=== PATIENT | male | born 1940 | race Caucasian/White ===

== ENCOUNTER 2020-04-15 10:23 | Observation (INO) ==
[2020-04-15 11:54] LABS: Basophils % 0.5 % (0.0-0.8); Eosinophils # 0.1 10*3/uL (0.0-0.87); Eosinophils % 2.3 % (0.00-10.9); Hematocrit 29.8 VOL% (42.0-52.0); Hemoglobin 9.4 GM/DL (14.0-18.0); Immature Granulocytes % 0.3 %; Immature Granulocytes Absolute 0.01 #; Lymphocytes # 0.5 10*3/uL (1.4-4.0); Lymphocytes % 11.9 % (21.2-54.2); Mean Corpuscular HGB Conc 31.5 GM/DL (32-36); Mean Corpuscular Volume 94.6 FL (87-102); Monocytes % 7.4 % (1.7-12.7); Neutrophils % 77.6 % (38.7-73.9); Platelet Count 204 T/CUMM (130-400); Red Blood Count 3.15 MC/CUMM (3.8-5.5); Red Cell Distribution Width 14.8 % (9.3-17.3); White Blood Count 3.9 T/CUMM (4-12)
[2020-04-15 11:57] LABS: Bilirubin,Total 0.4 MG/DL (0.2-1.0); Calcium 8.4 MG/DL (8.5-10.1); Osmolality,Calculated 291.8 MOS/KG (273-304); Total Protein 5.7 G/DL (6.4-8.3)
[2020-04-15] MEDS ORDERED: hydrALAZINE 20 MG/1 ML VIAL ONE (13:33)
[2020-04-15] MEDS ORDERED: FUROSEMIDE 100 MG/10 ML VIAL ONE (13:33)
[2020-04-15] MEDS ORDERED: hydrALAZINE 20 MG/1 ML VIAL IV STA (13:36)
[2020-04-15] MEDS ORDERED: FUROSEMIDE 40 MG/4 ML VIAL IV STA (13:36)
[2020-04-15] MEDS ORDERED: ACETAMINOPHEN 325 MG TABLET PO ONE (13:36)
[2020-04-15] MEDS ORDERED: DOCUSATE SODIUM 100 MG CAPSULE PO PRN (13:45)
[2020-04-15] MEDS ORDERED: ONDANSETRON 4 MG/2 ML VIAL IV PRN (13:45)
[2020-04-15] MEDS ORDERED: DEXTROSE 50% 25 GM/50 ML VIAL IV PRN ×2 (13:45)
[2020-04-15] MEDS ORDERED: GLUCAGON 1 MG VIAL IM PRN ×2 (13:45)
[2020-04-15] MEDS ORDERED: cloNIDine 0.1 MG TABLET PO PRN (13:56)
[2020-04-15 15:33] LABS: Bilirubin,Urine Negative (Negative); Blood, Urine Negative (Negative); Glucose,Urine (UA) Negative (Negative); Ketones,Urine Negative (Negative); Mucus,Urine Occasional /LPF (Occasional); Nitrite,Urine Negative (Negative); Protein,Urine >=500 MG/DL; RBC,Urine 5 /HPF (0-4); Squamous Epithelial Cell,Urine Occasional /HPF (0-10); Urine Appearance CLEAR (Clear); Urine Color Yellow (Yellow); Urine Specific Gravity 1.012 (1.001-1.035); Urine Urobilinogen < 2.0 EU/DL (0.2-1.0); WBC,Urine 1 /HPF (0-6)
[2020-04-15] MEDS: INSULIN LISPRO 100 UNIT/ML SUBCUT SCH ×2 (17:05→20:52)
[2020-04-15] MEDS ORDERED: CALCIUM CARBONATE CHEW 500 MG TABLET PO PRN (17:13)
[2020-04-15] MEDS: ROSUVASTATIN 20 MG TABLET PO SCH ×2 (18:09→20:44)
[2020-04-15] MEDS: HEPARIN 5,000 UNIT/1 ML VIAL SUBCUT SCH ×2 (18:09→21:39)
[2020-04-15] MEDS ORDERED: FENOFIBRATE 145 MG TABLET PO SCH (19:00)
[2020-04-15] MEDS ORDERED: DOXAZOSIN 4 MG TABLET PO SCH (21:00)
[2020-04-15] MEDS ORDERED: ASCORBIC ACID 500 MG TABLET PO SCH (21:00)
[2020-04-15] MEDS ORDERED: OLMESARTAN 20 MG TABLET PO SCH (21:00)
[2020-04-15] MEDS ORDERED: FAMOTIDINE 20 MG TABLET PO SCH (21:00)
[2020-04-15] MEDS ORDERED: CHOLECALCIFEROL 1,000 UNIT TABLET PO SCH (21:00)
[2020-04-15] MEDS ORDERED: GABAPENTIN 300 MG CAPSULE PO SCH (21:00)
[2020-04-15] MEDS ORDERED: NON-FORMULARY MEDICATION (L. Gasseri-B. Bifidum-B Longum [Phillips' Colon Health] 1.5 bill PO SCH (21:00)
[2020-04-15] MEDS ORDERED: MULTIVITAMIN (CENTRUM) TABLET PO SCH (21:00)
[2020-04-16] MEDS: HEPARIN 5,000 UNIT/1 ML VIAL SUBCUT SCH (05:55)
[2020-04-16 06:08] LABS: Eosinophils # 0.1 10*3/uL (0.0-0.87); Eosinophils % 2.9 % (0.00-10.9); Hematocrit 29.8 VOL% (42.0-52.0); Hemoglobin 9.3 GM/DL (14.0-18.0); Immature Granulocytes % 0.3 %; Immature Granulocytes Absolute 0.01 #; Lymphocytes # 0.8 10*3/uL (1.4-4.0); Lymphocytes % 19.6 % (21.2-54.2); Mean Corpuscular HGB Conc 31.2 GM/DL (32-36); Mean Corpuscular Volume 95.8 FL (87-102); Mean Platelet Volume 9.9 FL (9.6-12.0); Monocytes % 9.1 % (1.7-12.7); Neutrophils % 67.1 % (38.7-73.9); Platelet Count 198 T/CUMM (130-400); Red Blood Count 3.11 MC/CUMM (3.8-5.5); Red Cell Distribution Width 14.8 % (9.3-17.3); White Blood Count 3.8 T/CUMM (4-12)
[2020-04-16 06:27] LABS: Calcium 8.6 MG/DL (8.5-10.1); Osmolality,Calculated 289.8 MOS/KG (273-304); Risk Ratio 4.3; VLDL CHOLESTEROL 45.4 MG/DL
[2020-04-16] MEDS ORDERED: LEVOTHYROXINE 75 MCG TABLET PO SCH (06:30)
[2020-04-16] MEDS ORDERED: POTASSIUM CHLORIDE 20 MEQ TABLET PO PRN (07:07)
[2020-04-16] MEDS: INSULIN LISPRO 100 UNIT/ML SUBCUT SCH ×2 (07:52→11:05)
[2020-04-16] MEDS ORDERED: POTASSIUM CHLORIDE 20 MEQ TABLET PO ONE (08:49)
[2020-04-16] MEDS ORDERED: SERTRALINE 50 MG TABLET PO SCH (09:00)
[2020-04-16] MEDS ORDERED: PANTOPRAZOLE 40 MG TABLET PO SCH (09:00)
[2020-04-16] MEDS ORDERED: FUROSEMIDE 40 MG/4 ML VIAL IV SCH (09:00)
[2020-04-16] MEDS ORDERED: POTASSIUM CHLORIDE 20 MEQ TABLET PO SCH (09:00)
[2020-04-16] MEDS ORDERED: CLOPIDOGREL 75 MG TABLET PO SCH (09:00)
[2020-04-16] MEDS ORDERED: MAGNESIUM OXIDE 400 MG TABLET PO SCH (09:00)
[2020-04-16] MEDS ORDERED: carvediloL 6.25 MG TABLET PO SCH (11:00)
[2020-04-16 12:20] VITALS: BP 165/64
[2020-04-16] MEDS ORDERED: cloNIDine 0.1 MG TABLET PO SCH (21:00)
[2020-04-17] MEDS ORDERED: FUROSEMIDE 40 MG/4 ML VIAL IV SCH (09:00)
== END 2020-04-16 13:09 | disposition home health service (06) ==
LOC: N.EDINP 10:23 → N.ED 10:23 → N.5E 16:15
PROVIDERS: ADMIT Internal Medicine; ATTEND Internal Medicine

== ENCOUNTER 2020-04-29 10:23 | Inpatient (IN) ==
[2020-04-29 11:30] LABS: Basophils % 0.5 % (0.0-0.8); Eosinophils # 0.1 10*3/uL (0.0-0.87); Eosinophils % 2.6 % (0.00-10.9); Hematocrit 30.3 VOL% (42.0-52.0); Hemoglobin 9.5 GM/DL (14.0-18.0); Immature Granulocytes % 0.2 %; Immature Granulocytes Absolute 0.01 #; Lymphocytes # 0.6 10*3/uL (1.4-4.0); Lymphocytes % 14.9 % (21.2-54.2); Mean Corpuscular HGB Conc 31.4 GM/DL (32-36); Mean Corpuscular Volume 95.6 FL (87-102); Monocytes % 9.1 % (1.7-12.7); Neutrophils % 72.7 % (38.7-73.9); Platelet Count 221 T/CUMM (130-400); Red Blood Count 3.17 MC/CUMM (3.8-5.5); Red Cell Distribution Width 14.9 % (9.3-17.3); White Blood Count 4.2 T/CUMM (4-12)
[2020-04-29 11:53] LABS: Albumin 2.7 G/DL (3.4-5.0); Bilirubin,Total 0.4 MG/DL (0.2-1.0); Calcium 8.5 MG/DL (8.5-10.1); Osmolality,Calculated 293.8 MOS/KG (273-304)
[2020-04-29 11:54] LABS: PT Patient Result 10.8 SECS (9.8-11.9); Partial Thromboplastin Time 28.4 SECS (23.9-33.8)
[2020-04-29 12:32] LABS: Bilirubin,Urine Negative (Negative); Blood, Urine Negative (Negative); Glucose,Urine (UA) Negative (Negative); Hyaline Casts,Urine 5 /LPF (0-3); Ketones,Urine Negative (Negative); Mucus,Urine Occasional /LPF (Occasional); Nitrite,Urine Negative (Negative); Protein,Urine >=500 MG/DL; RBC,Urine 3 /HPF (0-4); Squamous Epithelial Cell,Urine Occasional /HPF (0-10); Urine Appearance CLEAR (Clear); Urine Color Yellow (Yellow); Urine Specific Gravity 1.017 (1.001-1.035); Urine Urobilinogen < 2.0 EU/DL (0.2-1.0); WBC,Urine 1 /HPF (0-6)
[2020-04-29] MEDS ORDERED: GLUCAGON 1 MG VIAL IM PRN (15:04)
[2020-04-29] MEDS ORDERED: DEXTROSE 50% 25 GM/50 ML VIAL IV PRN (15:04)
[2020-04-29] MEDS ORDERED: ALBUTEROL/IPRATROPIUM 3 ML NEB RESP TX PRN (15:33)
[2020-04-29] MEDS ORDERED: MAGNESIUM SULF RIDER 2 GM in PREMIX 1 EACH IV PRN (15:33)
[2020-04-29] MEDS ORDERED: MORPHINE 4 MG/1 ML VIAL IV PRN (15:33)
[2020-04-29] MEDS ORDERED: LACTULOSE 20 GM/30 ML UDCUP PO PRN (15:33)
[2020-04-29] MEDS ORDERED: PROMETHAZINE 25 MG/1 ML VIAL IM PRN (15:33)
[2020-04-29] MEDS ORDERED: MAGNESIUM SULF RIDER 4 GM in PREMIX 1 EACH IV PRN (15:33)
[2020-04-29] MEDS ORDERED: DOCUSATE SODIUM 100 MG CAPSULE PO PRN (15:33)
[2020-04-29] MEDS ORDERED: ONDANSETRON 4 MG/2 ML VIAL IV PRN (15:33)
[2020-04-29] MEDS: cefTRIAXone 1,000 MG in SYRINGE 1 EACH IV SCH (17:38)
[2020-04-29] MEDS: FUROSEMIDE 40 MG/4 ML VIAL IV SCH (17:38)
[2020-04-29] MEDS: AZITHROMYCIN INJ 500 MG in SODIUM CHLORIDE 0.9% 250 ML IV SCH (17:38)
[2020-04-29] MEDS: ACETAMINOPHEN 325 MG TABLET PO PRN ×2 (18:45→23:19)
[2020-04-29] MEDS: ENOXAPARIN 30 MG/0.3 ML SYRINGE SUBCUT SCH (20:27)
[2020-04-29] MEDS: guaiFENesin/DM ER 600-30 MG TABLET PO SCH (20:27)
[2020-04-30] MEDS: hydrALAZINE 20 MG/1 ML VIAL IV PRN ×3 (04:37→21:54)
[2020-04-30 05:46] LABS: Basophils % 0.8 % (0.0-0.8); Eosinophils # 0.1 10*3/uL (0.0-0.87); Eosinophils % 2.2 % (0.00-10.9); Hematocrit 30.1 VOL% (42.0-52.0); Hemoglobin 9.4 GM/DL (14.0-18.0); Immature Granulocytes % 0.2 %; Immature Granulocytes Absolute 0.01 #; Lymphocytes # 0.9 10*3/uL (1.4-4.0); Lymphocytes % 17.4 % (21.2-54.2); Mean Corpuscular HGB Conc 31.2 GM/DL (32-36); Mean Corpuscular Volume 93.8 FL (87-102); Mean Platelet Volume 10.5 FL (9.6-12.0); Monocytes % 8.4 % (1.7-12.7); Platelet Count 230 T/CUMM (130-400); Red Blood Count 3.21 MC/CUMM (3.8-5.5); Red Cell Distribution Width 14.6 % (9.3-17.3)
[2020-04-30 06:02] LABS: Calcium 8.3 MG/DL (8.5-10.1); Osmolality,Calculated 293.7 MOS/KG (273-304); Risk Ratio 4.4; Thyroid Stimulating Hormone 3.53 uIU/ml (0.358-3.74); VLDL CHOLESTEROL 45.4 MG/DL
[2020-04-30] MEDS: guaiFENesin/DM ER 600-30 MG TABLET PO SCH ×2 (08:22→20:52)
[2020-04-30] MEDS: ACETAMINOPHEN 325 MG TABLET PO PRN ×2 (08:22→17:08)
[2020-04-30] MEDS: FUROSEMIDE 40 MG/4 ML VIAL IV SCH ×2 (08:24→15:56)
[2020-04-30] MEDS ORDERED: cloNIDine 0.1 MG TABLET PO PRN (08:32)
[2020-04-30] MEDS: SERTRALINE 50 MG TABLET PO SCH (09:11)
[2020-04-30] MEDS: POTASSIUM CHLORIDE 10 MEQ TABLET PO SCH (09:11)
[2020-04-30] MEDS: LEVOTHYROXINE 75 MCG TABLET PO SCH (09:12)
[2020-04-30] MEDS: cloNIDine 0.1 MG TABLET PO SCH ×2 (09:12→20:52)
[2020-04-30] MEDS: CLOPIDOGREL 75 MG TABLET PO SCH (09:12)
[2020-04-30] MEDS: carvediloL 6.25 MG TABLET PO SCH ×2 (09:12→17:08)
[2020-04-30] MEDS: AZITHROMYCIN INJ 500 MG in SODIUM CHLORIDE 0.9% 250 ML IV SCH (15:59)
[2020-04-30] MEDS: cefTRIAXone 1,000 MG in SYRINGE 1 EACH IV SCH (17:11)
[2020-04-30] MEDS: DOXAZOSIN 4 MG TABLET PO SCH (18:16)
[2020-04-30] MEDS: FENOFIBRATE 145 MG TABLET PO SCH (18:16)
[2020-04-30] MEDS: ENOXAPARIN 30 MG/0.3 ML SYRINGE SUBCUT SCH (20:52)
[2020-05-01] MEDS: ACETAMINOPHEN 325 MG TABLET PO PRN ×3 (00:05→15:16)
[2020-05-01] MEDS: LEVOTHYROXINE 75 MCG TABLET PO SCH (06:10)
[2020-05-01 07:32] LABS: Basophils % 0.4 % (0.0-0.8); Eosinophils # 0.1 10*3/uL (0.0-0.87); Hematocrit 28.8 VOL% (42.0-52.0); Hemoglobin 9.2 GM/DL (14.0-18.0); Immature Granulocytes % 0.2 %; Immature Granulocytes Absolute 0.01 #; Lymphocytes # 0.7 10*3/uL (1.4-4.0); Lymphocytes % 13.3 % (21.2-54.2); Mean Corpuscular HGB Conc 31.9 GM/DL (32-36); Mean Corpuscular Volume 93.8 FL (87-102); Mean Platelet Volume 9.9 FL (9.6-12.0); Monocytes % 8.5 % (1.7-12.7); Neutrophils % 75.6 % (38.7-73.9); Platelet Count 197 T/CUMM (130-400); Red Blood Count 3.07 MC/CUMM (3.8-5.5); Red Cell Distribution Width 14.9 % (9.3-17.3)
[2020-05-01 07:53] LABS: Calcium 8.3 MG/DL (8.5-10.1); Osmolality,Calculated 295.7 MOS/KG (273-304)
[2020-05-01] MEDS: POTASSIUM CHLORIDE 20 MEQ TABLET PO PRN ×4 (08:34→18:32)
[2020-05-01] MEDS: POTASSIUM CHLORIDE 10 MEQ TABLET PO SCH (08:34)
[2020-05-01] MEDS: cloNIDine 0.1 MG TABLET PO SCH ×2 (08:35→20:08)
[2020-05-01] MEDS: SERTRALINE 50 MG TABLET PO SCH (08:35)
[2020-05-01] MEDS: guaiFENesin/DM ER 600-30 MG TABLET PO SCH ×2 (08:35→20:08)
[2020-05-01] MEDS: carvediloL 6.25 MG TABLET PO SCH ×2 (08:35→16:30)
[2020-05-01] MEDS: AZITHROMYCIN 250 MG TABLET PO SCH (08:35)
[2020-05-01] MEDS: CLOPIDOGREL 75 MG TABLET PO SCH (08:35)
[2020-05-01] MEDS: FUROSEMIDE 40 MG/4 ML VIAL IV SCH (08:40)
[2020-05-01] MEDS: FUROSEMIDE 40 MG TABLET PO SCH (16:30)
[2020-05-01] MEDS: FENOFIBRATE 145 MG TABLET PO SCH (18:33)
[2020-05-01] MEDS: DOXAZOSIN 4 MG TABLET PO SCH (18:33)
[2020-05-01] MEDS: hydrALAZINE 20 MG/1 ML VIAL IV PRN (20:07)
[2020-05-01] MEDS: ENOXAPARIN 30 MG/0.3 ML SYRINGE SUBCUT SCH (20:07)
[2020-05-02 00:49] LABS: Basophils % 0.6 % (0.0-0.8); Eosinophils # 0.1 10*3/uL (0.0-0.87); Eosinophils % 2.4 % (0.00-10.9); Hematocrit 29.4 VOL% (42.0-52.0); Hemoglobin 9.3 GM/DL (14.0-18.0); Immature Granulocytes % 0.2 %; Immature Granulocytes Absolute 0.01 #; Lymphocytes # 0.9 10*3/uL (1.4-4.0); Lymphocytes % 17.8 % (21.2-54.2); Mean Corpuscular HGB Conc 31.6 GM/DL (32-36); Mean Corpuscular Volume 93.9 FL (87-102); Mean Platelet Volume 10.4 FL (9.6-12.0); Monocytes % 10.8 % (1.7-12.7); Neutrophils % 68.2 % (38.7-73.9); Platelet Count 201 T/CUMM (130-400); Red Blood Count 3.13 MC/CUMM (3.8-5.5); Red Cell Distribution Width 14.7 % (9.3-17.3)
[2020-05-02] MEDS: LEVOTHYROXINE 75 MCG TABLET PO SCH (06:05)
[2020-05-02 06:47] LABS: Calcium 8.2 MG/DL (8.5-10.1); Osmolality,Calculated 298.4 MOS/KG (273-304)
[2020-05-02] MEDS: CLOPIDOGREL 75 MG TABLET PO SCH (08:44)
[2020-05-02] MEDS: POTASSIUM CHLORIDE 20 MEQ TABLET PO PRN (08:45)
[2020-05-02] MEDS: AZITHROMYCIN 250 MG TABLET PO SCH (08:45)
[2020-05-02] MEDS: SERTRALINE 50 MG TABLET PO SCH (08:46)
[2020-05-02] MEDS: POTASSIUM CHLORIDE 10 MEQ TABLET PO SCH (08:47)
[2020-05-02] MEDS: carvediloL 6.25 MG TABLET PO SCH (08:47)
[2020-05-02] MEDS: guaiFENesin/DM ER 600-30 MG TABLET PO SCH (08:47)
[2020-05-02] MEDS: cloNIDine 0.1 MG TABLET PO SCH (08:48)
[2020-05-02] MEDS: FUROSEMIDE 40 MG TABLET PO SCH (09:49)
[2020-05-02] MEDS ORDERED: POTASSIUM CHLORIDE 20 MEQ TABLET PO ONE (10:42)
[2020-05-02] MEDS ORDERED: hydrALAZINE 25 MG TABLET PO SCH (15:00)
[2020-05-02 15:38] VITALS: BP 158/63
[2020-05-02] MEDS ORDERED: ASCORBIC ACID 500 MG TABLET PO SCH (19:00)
[2020-05-02] MEDS ORDERED: [UNRECOGNIZED DRUG - MIXTURE] PO SCH (19:00)
[2020-05-02] MEDS ORDERED: CHOLECALCIFEROL 1,000 UNIT TABLET PO SCH (19:00)
[2020-05-02] MEDS ORDERED: MULTIVITAMIN (CENTRUM) TABLET PO SCH (19:00)
[2020-05-02] MEDS ORDERED: ROSUVASTATIN 20 MG TABLET PO SCH (19:00)
[2020-05-02] MEDS ORDERED: FAMOTIDINE 20 MG TABLET PO SCH (21:00)
[2020-05-02] MEDS ORDERED: GABAPENTIN 300 MG CAPSULE PO SCH (21:00)
[2020-05-02] MEDS ORDERED: PANTOPRAZOLE 40 MG TABLET PO SCH (21:00)
[2020-05-02] MEDS ORDERED: REPAGLINIDE 1 MG TABLET PO SCH (21:00)
[2020-05-03] MEDS ORDERED: MAGNESIUM OXIDE 400 MG TABLET PO SCH (09:00)
== END 2020-05-02 16:35 | disposition home health service (06) | DRG 291 ==
LOC: N.ED 10:23 → N.EDINP 15:04 → N.TELEN 16:32
PROVIDERS: ADMIT Internal Medicine; ATTEND Internal Medicine

== ENCOUNTER 2020-08-31 08:54 | Observation (INO) ==
[2020-08-31 09:38] LABS: Basophils % 0.6 % (0.0-0.8); Eosinophils # 0.1 10*3/uL (0.0-0.87); Eosinophils % 1.8 % (0.00-10.9); Hematocrit 26.5 VOL% (42.0-52.0); Hemoglobin 8.3 GM/DL (14.0-18.0); Immature Granulocytes % 0.4 %; Immature Granulocytes Absolute 0.02 #; Lymphocytes # 0.5 10*3/uL (1.4-4.0); Mean Corpuscular HGB Conc 31.3 GM/DL (32-36); Mean Corpuscular Volume 94.6 FL (87-102); Mean Platelet Volume 9.9 FL (9.6-12.0); Monocytes % 8.6 % (1.7-12.7); Neutrophils % 77.6 % (38.7-73.9); Platelet Count 221 T/CUMM (130-400); Red Cell Distribution Width 15.5 % (9.3-17.3); White Blood Count 4.9 T/CUMM (4-12)
[2020-08-31 09:48] LABS: PT Patient Result 10.7 SECS (9.8-11.9); Partial Thromboplastin Time 24.8 SECS (23.9-33.8)
[2020-08-31 09:59] LABS: Alanine Aminotransferase 21 U/L (16-61); Albumin 2.5 G/DL (3.4-5.0); Alkaline Phosphatase 75 U/L (45-117); Aspartate Amino Transferase 28 U/L (0-37); Bilirubin,Total < 0.39 MG/DL (0.2-1.0); Blood Urea Nitrogen 54 MG/DL (7-18); Calcium 8.3 MG/DL (8.5-10.1); Carbon Dioxide 33 MMOL/L (21-32); Estimated Glom Filtration Rate 14 ML/MIN; Glucose 158 MG/DL (74-106); Osmolality,Calculated 303.8 MOS/KG (273-304); Sodium 144 MMOL/L (136-145); Total Protein 5.8 G/DL (5.0-7.5)
[2020-08-31 10:07] LABS: Free T4 (Free Thyroxine) 0.88 NG/DL (0.76-1.46); Thyroid Stimulating Hormone 4.06 uIU/ml (0.358-3.74)
[2020-08-31] MEDS ORDERED: POTASSIUM CHLORIDE 20 MEQ TABLET PO STA (10:48)
[2020-08-31] MEDS ORDERED: SODIUM CHLORIDE 0.9% 1,000 ML IV STA (11:28)
[2020-08-31 11:29] LABS: Bacteria,Urine Occasional /HPF (Few); Bilirubin,Urine Negative (Negative); Blood, Urine Negative (Negative); Glucose,Urine (UA) Negative (Negative); Ketones,Urine Negative (Negative); Mucus,Urine Occasional /LPF (Occasional); Nitrite,Urine Negative (Negative); Protein,Urine >=500 MG/DL; RBC,Urine <1 /HPF (0-4); Urine Appearance CLEAR (Clear); Urine Color Yellow (Yellow); Urine Specific Gravity 1.011 (1.001-1.035); Urine Urobilinogen < 2.0 EU/DL (0.2-1.0); WBC,Urine 1 /HPF (0-6)
[2020-08-31] MEDS ORDERED: GLUCAGON 1 MG VIAL IM PRN (11:38)
[2020-08-31] MEDS ORDERED: ONDANSETRON 4 MG/2 ML VIAL IV PRN (11:38)
[2020-08-31] MEDS ORDERED: DEXTROSE 50% 25 GM/50 ML VIAL IV PRN (11:38)
[2020-08-31] MEDS ORDERED: LABETALOL 20 MG/4 ML SYRINGE IV PRN (11:43)
[2020-08-31] MEDS ORDERED: ENOXAPARIN 30 MG/0.3 ML SYRINGE SUBCUT SCH (12:00)
[2020-08-31] MEDS: SODIUM CHLORIDE 0.9% 1,000 ML IV SCH (14:40)
[2020-08-31] MEDS ORDERED: ACETAMINOPHEN 325 MG TABLET PO PRN (15:38)
[2020-08-31] MEDS: ENOXAPARIN 30 MG/0.3 ML SYRINGE SUBCUT SCH (16:25)
[2020-08-31] MEDS: carvediloL 3.125 MG TABLET PO SCH (16:26)
[2020-08-31] MEDS ORDERED: ROSUVASTATIN 20 MG TABLET PO SCH (21:00)
[2020-08-31] MEDS ORDERED: cloNIDine 0.1 MG TABLET PO SCH (21:00)
[2020-08-31] MEDS ORDERED: DOXAZOSIN 4 MG TABLET PO SCH (21:00)
[2020-08-31] MEDS ORDERED: FENOFIBRATE 145 MG TABLET PO SCH (21:00)
[2020-08-31] MEDS ORDERED: CHOLECALCIFEROL 1,000 UNIT TABLET PO SCH (21:00)
[2020-08-31] MEDS ORDERED: ASCORBIC ACID 500 MG TABLET PO SCH (21:00)
[2020-08-31] MEDS ORDERED: MULTIVITAMIN (CENTRUM) TABLET PO SCH (21:00)
[2020-08-31] MEDS ORDERED: FAMOTIDINE 20 MG TABLET PO SCH (21:00)
[2020-09-01] MEDS: SODIUM CHLORIDE 0.9% 1,000 ML IV SCH ×2 (01:04→11:11)
[2020-09-01 05:38] LABS: Basophils % 0.5 % (0.0-0.8); Eosinophils # 0.1 10*3/uL (0.0-0.87); Hematocrit 25.7 VOL% (42.0-52.0); Hemoglobin 7.7 GM/DL (14.0-18.0); Lymphocytes # 0.8 10*3/uL (1.4-4.0); Lymphocytes % 21.8 % (21.2-54.2); Mean Corpuscular Volume 96.6 FL (87-102); Mean Platelet Volume 10.2 FL (9.6-12.0); Monocytes % 10.5 % (1.7-12.7); Neutrophils % 64.2 % (38.7-73.9); Platelet Count 177 T/CUMM (130-400); Red Blood Count 2.66 MC/CUMM (3.8-5.5); Red Cell Distribution Width 15.4 % (9.3-17.3); White Blood Count 3.7 T/CUMM (4-12)
[2020-09-01 06:02] LABS: % Iron Saturation 16.7 % (18-50); Calcium 8.1 MG/DL (8.5-10.1); Osmolality,Calculated 305.4 MOS/KG (273-304); Potassium 2.8 MMOL/L (3.5-5.1); Risk Ratio 3.49; VLDL CHOLESTEROL 33.2 MG/DL
[2020-09-01] MEDS ORDERED: LEVOTHYROXINE 75 MCG TABLET PO SCH (06:30)
[2020-09-01] MEDS ORDERED: POTASSIUM CHLORIDE 20 MEQ TABLET PO ONE ×2 (07:26→11:53)
[2020-09-01] MEDS: carvediloL 3.125 MG TABLET PO SCH (08:52)
[2020-09-01] MEDS: POTASSIUM CHLORIDE RIDER 10 MEQ in PREMIX 1 EACH IV SCH ×5 (08:54→11:11)
[2020-09-01] MEDS ORDERED: SERTRALINE 50 MG TABLET PO SCH (09:00)
[2020-09-01] MEDS ORDERED: PANTOPRAZOLE 40 MG TABLET PO SCH (09:00)
[2020-09-01] MEDS ORDERED: CLOPIDOGREL 75 MG TABLET PO SCH (09:00)
[2020-09-01] MEDS ORDERED: POLYVINYL ALCOHOL 1.4% OPH SOLN 15 ML BOTTLE BOTH EYES PRN (11:47)
[2020-09-01] MEDS: ENOXAPARIN 30 MG/0.3 ML SYRINGE SUBCUT SCH (12:10)
[2020-09-01 12:27] VITALS: BP 187/74
== END 2020-09-01 16:05 | disposition home or self-care (01) ==
LOC: N.ED 08:54 → N.EDINP 08:54 → N.TELEN 14:20
PROVIDERS: ADMIT Internal Medicine; ATTEND Internal Medicine

== ENCOUNTER 2020-09-12 08:03 | Inpatient (IN) ==
[2020-09-12] MEDS ORDERED: SODIUM CHLORIDE 0.9% 500 ML IV STA (08:10)
[2020-09-12 08:54] LABS: Basophils % 0.2 % (0.0-0.8); Eosinophils # 0.1 10*3/uL (0.0-0.87); Immature Granulocytes % 0.4 %; Immature Granulocytes Absolute 0.02 #; Lymphocytes # 0.7 10*3/uL (1.4-4.0); Lymphocytes % 14.5 % (21.2-54.2); Mean Corpuscular HGB Conc 30.1 GM/DL (32-36); Mean Corpuscular Volume 98.2 FL (87-102); Mean Platelet Volume 10.4 FL (9.6-12.0); Monocytes % 6.6 % (1.7-12.7); Neutrophils % 77.3 % (38.7-73.9); Platelet Count 191 T/CUMM (130-400); Red Blood Count 1.66 MC/CUMM (3.8-5.5); Red Cell Distribution Width 15.8 % (9.3-17.3); White Blood Count 4.8 T/CUMM (4-12)
[2020-09-12 08:58] LABS: Hematocrit 16.3 VOL% (42.0-52.0); Hemoglobin 4.9 GM/DL (14.0-18.0)
[2020-09-12 09:03] LABS: INR 1.1; PT Patient Result 11.9 SECS (9.8-11.9); Partial Thromboplastin Time 23.9 SECS (23.9-33.8)
[2020-09-12] MEDS ORDERED: SODIUM CHLORIDE 0.9% 1,000 ML IV PRN (09:04)
[2020-09-12 09:18] LABS: Bilirubin,Total 0.5 MG/DL (0.2-1.0); Calcium 7.7 MG/DL (8.5-10.1); Osmolality,Calculated 308.3 MOS/KG (273-304); Potassium 3.9 MMOL/L (3.5-5.1); Total Protein 4.2 G/DL (5.0-7.5)
[2020-09-12 11:04] LABS: Amorphous Crystals,Urine Moderate /HPF (Few); Bilirubin,Urine Negative (Negative); Blood, Urine Negative (Negative); Glucose,Urine (UA) 50 mg/dL (Negative); Ketones,Urine Negative (Negative); Mucus,Urine Occasional /LPF (Occasional); Nitrite,Urine Negative (Negative); Protein,Urine >=500 MG/DL; Urine Appearance CLOUDY (Clear); Urine Color Yellow (Yellow); Urine Specific Gravity 1.015 (1.001-1.035); Urine Urobilinogen < 2.0 EU/DL (0.2-1.0)
[2020-09-12] MEDS ORDERED: ONDANSETRON 4 MG/2 ML VIAL IV PRN (11:23)
[2020-09-12] MEDS ORDERED: DEXTROSE 50% 25 GM/50 ML VIAL IV PRN (11:23)
[2020-09-12] MEDS ORDERED: GLUCAGON 1 MG VIAL IM PRN (11:23)
[2020-09-12] MEDS ORDERED: DOCUSATE SODIUM 100 MG CAPSULE PO PRN (11:23)
[2020-09-12] MEDS ORDERED: FUROSEMIDE 40 MG/4 ML VIAL IV ONE (11:23)
[2020-09-12] MEDS: ACETAMINOPHEN 325 MG TABLET PO PRN ×2 (13:22→21:30)
[2020-09-12 18:34] LABS: Hematocrit 22.1 VOL% (42.0-52.0); Hemoglobin 7.1 GM/DL (14.0-18.0)
[2020-09-13 06:10] LABS: Basophils % 0.6 % (0.0-0.8); Eosinophils # 0.1 10*3/uL (0.0-0.87); Eosinophils % 2.2 % (0.00-10.9); Hematocrit 18.2 VOL% (42.0-52.0); Immature Granulocytes % 0.4 %; Immature Granulocytes Absolute 0.02 #; Lymphocytes # 0.7 10*3/uL (1.4-4.0); Lymphocytes % 13.1 % (21.2-54.2); Mean Corpuscular HGB Conc 32.4 GM/DL (32-36); Mean Corpuscular Volume 92.4 FL (87-102); Mean Platelet Volume 9.8 FL (9.6-12.0); Monocytes % 10.1 % (1.7-12.7); Neutrophils % 73.6 % (38.7-73.9); Red Blood Count 1.97 MC/CUMM (3.8-5.5); Red Cell Distribution Width 15.5 % (9.3-17.3)
[2020-09-13 06:20] LABS: Calcium 8.1 MG/DL (8.5-10.1); Osmolality,Calculated 303.6 MOS/KG (273-304); Potassium 3.4 MMOL/L (3.5-5.1)
[2020-09-13 06:23] LABS: Platelet Count 151 T/CUMM (130-400); Uric Acid 7.7 MG/DL (3.5-7.2)
[2020-09-13 06:24] LABS: Hemoglobin 5.9 GM/DL (14.0-18.0)
[2020-09-13] MEDS ORDERED: SODIUM CHLORIDE 0.9% 1,000 ML IV PRN (07:29)
[2020-09-13] MEDS: PANTOPRAZOLE 40 MG TABLET PO SCH (08:08)
[2020-09-13] MEDS: FUROSEMIDE 80 MG TABLET PO SCH (08:08)
[2020-09-13] MEDS ORDERED: POLYVINYL ALCOHOL 1.4% OPH SOLN 15 ML BOTTLE BOTH EYES PRN (12:12)
[2020-09-13 13:58] LABS: Protein/Creatinine Ratio,Urine 3.9 RATIO
[2020-09-13] MEDS: ACETAMINOPHEN 325 MG TABLET PO PRN ×2 (14:26→18:37)
[2020-09-13 15:42] LABS: Hematocrit 26.8 VOL% (42.0-52.0); Hemoglobin 8.6 GM/DL (14.0-18.0)
[2020-09-13] MEDS: hydrALAZINE 20 MG/1 ML VIAL IV PRN (16:45)
[2020-09-13] MEDS: ROSUVASTATIN 20 MG TABLET PO SCH (20:51)
[2020-09-13] MEDS: MULTIVITAMIN (CENTRUM) TABLET PO SCH (20:51)
[2020-09-13] MEDS: DOXAZOSIN 4 MG TABLET PO SCH (20:52)
[2020-09-13] MEDS: FENOFIBRATE 145 MG TABLET PO SCH (20:52)
[2020-09-13] MEDS: CHOLECALCIFEROL 1,000 UNIT TABLET PO SCH (20:52)
[2020-09-13] MEDS: GABAPENTIN 300 MG CAPSULE PO SCH (20:53)
[2020-09-13] MEDS: FAMOTIDINE 20 MG TABLET PO SCH (20:53)
[2020-09-13] MEDS: cloNIDine 0.1 MG TABLET PO SCH (20:53)
[2020-09-13] MEDS: ASCORBIC ACID 500 MG TABLET PO SCH (20:53)
[2020-09-13] MEDS: POTASSIUM CHLORIDE 10 MEQ TABLET PO SCH (20:53)
[2020-09-13] MEDS ORDERED: carvediloL 3.125 MG TABLET PO SCH (21:00)
[2020-09-14] MEDS: hydrALAZINE 20 MG/1 ML VIAL IV PRN (05:15)
[2020-09-14] MEDS: ACETAMINOPHEN 325 MG TABLET PO PRN ×3 (05:15→22:37)
[2020-09-14] MEDS: LEVOTHYROXINE 75 MCG TABLET PO SCH (06:15)
[2020-09-14 06:22] LABS: Basophils % 0.4 % (0.0-0.8); Eosinophils # 0.1 10*3/uL (0.0-0.87); Eosinophils % 1.8 % (0.00-10.9); Hematocrit 25.2 VOL% (42.0-52.0); Hemoglobin 8.2 GM/DL (14.0-18.0); Immature Granulocytes % 0.5 %; Immature Granulocytes Absolute 0.03 #; Lymphocytes # 0.6 10*3/uL (1.4-4.0); Lymphocytes % 11.4 % (21.2-54.2); Mean Corpuscular HGB Conc 32.5 GM/DL (32-36); Mean Platelet Volume 9.8 FL (9.6-12.0); Monocytes % 8.5 % (1.7-12.7); Neutrophils % 77.4 % (38.7-73.9); Platelet Count 169 T/CUMM (130-400); Red Blood Count 2.71 MC/CUMM (3.8-5.5); Red Cell Distribution Width 15.3 % (9.3-17.3); White Blood Count 5.5 T/CUMM (4-12)
[2020-09-14 06:51] LABS: Calcium 7.9 MG/DL (8.5-10.1); Osmolality,Calculated 303.6 MOS/KG (273-304); Potassium 3.1 MMOL/L (3.5-5.1)
[2020-09-14] MEDS ORDERED: POTASSIUM CHLORIDE 20 MEQ TABLET PO ONE (08:07)
[2020-09-14] MEDS: POTASSIUM CHLORIDE 10 MEQ TABLET PO SCH ×2 (08:24→21:43)
[2020-09-14] MEDS: PANTOPRAZOLE 40 MG TABLET PO SCH (08:24)
[2020-09-14] MEDS: FUROSEMIDE 80 MG TABLET PO SCH (08:24)
[2020-09-14] MEDS: CALCIUM (CARBONATE) 500 MG TABLET PO SCH (08:25)
[2020-09-14] MEDS: SERTRALINE 50 MG TABLET PO SCH (09:29)
[2020-09-14 15:40] LABS: Myoglobin, Serum 613 mcg/L (<=90)
[2020-09-14] MEDS: carvediloL 12.5 MG TABLET PO SCH (21:43)
[2020-09-14] MEDS: MULTIVITAMIN (CENTRUM) TABLET PO SCH (21:43)
[2020-09-14] MEDS: FENOFIBRATE 145 MG TABLET PO SCH (21:45)
[2020-09-14] MEDS: FAMOTIDINE 20 MG TABLET PO SCH (21:45)
[2020-09-14] MEDS: ROSUVASTATIN 20 MG TABLET PO SCH (21:45)
[2020-09-14] MEDS: cloNIDine 0.1 MG TABLET PO SCH (21:45)
[2020-09-14] MEDS: CHOLECALCIFEROL 1,000 UNIT TABLET PO SCH (21:45)
[2020-09-14] MEDS: DOXAZOSIN 4 MG TABLET PO SCH (21:45)
[2020-09-14] MEDS: ASCORBIC ACID 500 MG TABLET PO SCH (21:46)
[2020-09-14] MEDS: GABAPENTIN 300 MG CAPSULE PO SCH (21:46)
[2020-09-15 04:25] LABS: Basophils % 0.4 % (0.0-0.8); Eosinophils # 0.1 10*3/uL (0.0-0.87); Eosinophils % 1.9 % (0.00-10.9); Hematocrit 21.9 VOL% (42.0-52.0); Immature Granulocytes % 0.4 %; Immature Granulocytes Absolute 0.02 #; Lymphocytes # 0.6 10*3/uL (1.4-4.0); Mean Corpuscular Volume 93.2 FL (87-102); Monocytes % 8.7 % (1.7-12.7); Neutrophils % 76.6 % (38.7-73.9); Platelet Count 164 T/CUMM (130-400); Red Blood Count 2.35 MC/CUMM (3.8-5.5); Red Cell Distribution Width 15.2 % (9.3-17.3); White Blood Count 5.2 T/CUMM (4-12)
[2020-09-15 04:46] LABS: Calcium 7.9 MG/DL (8.5-10.1); Osmolality,Calculated 304.6 MOS/KG (273-304); Potassium 3.1 MMOL/L (3.5-5.1)
[2020-09-15] MEDS: LEVOTHYROXINE 75 MCG TABLET PO SCH (05:37)
[2020-09-15] MEDS: carvediloL 12.5 MG TABLET PO SCH ×2 (08:00→16:34)
[2020-09-15] MEDS ORDERED: POLYETHYLENE GLYCOL POWDER 255 GM BOTTLE PO ONE (08:20)
[2020-09-15 08:45] LABS: % Iron Saturation 7.3 % (18-50); Ferritin 122.5 ng/ml (26-388)
[2020-09-15 09:01] LABS: Folate 20.9 NG/ML (5.38-24.0)
[2020-09-15] MEDS: ACETAMINOPHEN 325 MG TABLET PO PRN (11:32)
[2020-09-15] MEDS ORDERED: DIAZEPAM 5 MG TABLET PO ONE (12:55)
[2020-09-15] MEDS: CALCIUM (CARBONATE) 500 MG TABLET PO SCH (15:10)
[2020-09-15] MEDS: POTASSIUM CHLORIDE 10 MEQ TABLET PO SCH ×2 (15:10→22:03)
[2020-09-15] MEDS: PANTOPRAZOLE 40 MG TABLET PO SCH (15:10)
[2020-09-15] MEDS: SERTRALINE 50 MG TABLET PO SCH (15:10)
[2020-09-15] MEDS: FUROSEMIDE 80 MG TABLET PO SCH (15:11)
[2020-09-15] MEDS ORDERED: POLYETHYLENE GLYCOL POWDER 17 GM PACK PO ONE (17:00)
[2020-09-15] MEDS ORDERED: SODIUM CHLORIDE 0.9% 1,000 ML IV PRN (17:11)
[2020-09-15] MEDS: GABAPENTIN 300 MG CAPSULE PO SCH (22:02)
[2020-09-15] MEDS: cloNIDine 0.1 MG TABLET PO SCH (22:02)
[2020-09-15] MEDS: FAMOTIDINE 20 MG TABLET PO SCH (22:02)
[2020-09-15] MEDS: MULTIVITAMIN (CENTRUM) TABLET PO SCH (22:02)
[2020-09-15] MEDS: CHOLECALCIFEROL 1,000 UNIT TABLET PO SCH (22:03)
[2020-09-15] MEDS: ROSUVASTATIN 20 MG TABLET PO SCH (22:03)
[2020-09-15] MEDS: ASCORBIC ACID 500 MG TABLET PO SCH (22:04)
[2020-09-15] MEDS: FENOFIBRATE 145 MG TABLET PO SCH (22:04)
[2020-09-15] MEDS: DOXAZOSIN 4 MG TABLET PO SCH (22:05)
[2020-09-16] MEDS: ACETAMINOPHEN 325 MG TABLET PO PRN ×3 (05:37→21:00)
[2020-09-16] MEDS: LEVOTHYROXINE 75 MCG TABLET PO SCH (05:37)
[2020-09-16 08:28] LABS: Basophils % 0.4 % (0.0-0.8); Eosinophils # 0.2 10*3/uL (0.0-0.87); Eosinophils % 2.9 % (0.00-10.9); Hemoglobin 9.1 GM/DL (14.0-18.0); Immature Granulocytes % 0.4 %; Immature Granulocytes Absolute 0.02 #; Lymphocytes # 0.5 10*3/uL (1.4-4.0); Lymphocytes % 10.6 % (21.2-54.2); Mean Corpuscular HGB Conc 32.5 GM/DL (32-36); Mean Platelet Volume 9.8 FL (9.6-12.0); Monocytes % 9.4 % (1.7-12.7); Neutrophils % 76.3 % (38.7-73.9); Platelet Count 184 T/CUMM (130-400); Red Blood Count 2.98 MC/CUMM (3.8-5.5); Red Cell Distribution Width 14.6 % (9.3-17.3); White Blood Count 5.1 T/CUMM (4-12)
[2020-09-16 08:49] LABS: Bilirubin,Total 1.2 MG/DL (0.2-1.0); Calcium 8.2 MG/DL (8.5-10.1); Osmolality,Calculated 302.7 MOS/KG (273-304); Parathyroid Hormone Intact 95.4 PG/ML (18.4-80.1); Total Protein 5.3 G/DL (6.4-8.2)
[2020-09-16] MEDS: SERTRALINE 50 MG TABLET PO SCH (09:57)
[2020-09-16] MEDS: CALCIUM (CARBONATE) 500 MG TABLET PO SCH (09:57)
[2020-09-16] MEDS: POTASSIUM CHLORIDE 10 MEQ TABLET PO SCH ×2 (09:57→21:01)
[2020-09-16] MEDS: carvediloL 12.5 MG TABLET PO SCH ×2 (09:58→18:23)
[2020-09-16] MEDS: FUROSEMIDE 80 MG TABLET PO SCH (09:58)
[2020-09-16] MEDS: PANTOPRAZOLE 40 MG TABLET PO SCH (09:58)
[2020-09-16] MEDS ORDERED: POTASSIUM CHLORIDE 20 MEQ TABLET PO ONE (13:20)
[2020-09-16] MEDS: IRON SUCROSE 100 MG/5 ML VIAL IV SCH (18:23)
[2020-09-16] MEDS: cloNIDine 0.1 MG TABLET PO SCH (21:01)
[2020-09-16] MEDS: ROSUVASTATIN 20 MG TABLET PO SCH (21:01)
[2020-09-16] MEDS: CHOLECALCIFEROL 1,000 UNIT TABLET PO SCH (21:01)
[2020-09-16] MEDS: MULTIVITAMIN (CENTRUM) TABLET PO SCH (21:01)
[2020-09-16] MEDS: FAMOTIDINE 20 MG TABLET PO SCH (21:01)
[2020-09-16] MEDS: FENOFIBRATE 145 MG TABLET PO SCH (21:02)
[2020-09-16] MEDS: DOXAZOSIN 4 MG TABLET PO SCH (21:02)
[2020-09-16] MEDS: GABAPENTIN 300 MG CAPSULE PO SCH (21:02)
[2020-09-16] MEDS: ASCORBIC ACID 500 MG TABLET PO SCH (21:02)
[2020-09-17 05:03] LABS: Basophils % 0.5 % (0.0-0.8); Eosinophils # 0.2 10*3/uL (0.0-0.87); Eosinophils % 3.4 % (0.00-10.9); Hematocrit 30.2 VOL% (42.0-52.0); Hemoglobin 9.6 GM/DL (14.0-18.0); Immature Granulocytes % 0.2 %; Immature Granulocytes Absolute 0.01 #; Lymphocytes # 0.6 10*3/uL (1.4-4.0); Lymphocytes % 12.8 % (21.2-54.2); Mean Corpuscular HGB Conc 31.8 GM/DL (32-36); Mean Corpuscular Volume 93.8 FL (87-102); Mean Platelet Volume 9.9 FL (9.6-12.0); Monocytes % 10.6 % (1.7-12.7); Neutrophils % 72.5 % (38.7-73.9); Platelet Count 205 T/CUMM (130-400); Red Blood Count 3.22 MC/CUMM (3.8-5.5); Red Cell Distribution Width 14.6 % (9.3-17.3); White Blood Count 4.4 T/CUMM (4-12)
[2020-09-17 05:25] LABS: Calcium 8.1 MG/DL (8.5-10.1); Potassium 3.1 MMOL/L (3.5-5.1)
[2020-09-17] MEDS: LEVOTHYROXINE 75 MCG TABLET PO SCH (06:10)
[2020-09-17] MEDS: ACETAMINOPHEN 325 MG TABLET PO PRN (09:31)
[2020-09-17] MEDS: POTASSIUM CHLORIDE 10 MEQ TABLET PO SCH ×2 (09:31→20:23)
[2020-09-17] MEDS: carvediloL 12.5 MG TABLET PO SCH ×2 (09:32→18:16)
[2020-09-17] MEDS: FUROSEMIDE 80 MG TABLET PO SCH (09:32)
[2020-09-17] MEDS: SERTRALINE 50 MG TABLET PO SCH (09:32)
[2020-09-17] MEDS: CALCIUM (CARBONATE) 500 MG TABLET PO SCH (09:32)
[2020-09-17] MEDS: PANTOPRAZOLE 40 MG TABLET PO SCH (09:32)
[2020-09-17] MEDS: IRON SUCROSE 100 MG/5 ML VIAL IV SCH (09:33)
[2020-09-17] MEDS: ROSUVASTATIN 20 MG TABLET PO SCH (20:22)
[2020-09-17] MEDS: GABAPENTIN 300 MG CAPSULE PO SCH (20:22)
[2020-09-17] MEDS: cloNIDine 0.1 MG TABLET PO SCH (20:22)
[2020-09-17] MEDS: MULTIVITAMIN (CENTRUM) TABLET PO SCH (20:22)
[2020-09-17] MEDS: CHOLECALCIFEROL 1,000 UNIT TABLET PO SCH (20:23)
[2020-09-17] MEDS: ASCORBIC ACID 500 MG TABLET PO SCH (20:24)
[2020-09-17] MEDS: FAMOTIDINE 20 MG TABLET PO SCH (20:25)
[2020-09-17] MEDS: FENOFIBRATE 145 MG TABLET PO SCH (20:29)
[2020-09-17] MEDS: DOXAZOSIN 4 MG TABLET PO SCH (20:30)
[2020-09-18] MEDS: LEVOTHYROXINE 75 MCG TABLET PO SCH (06:02)
[2020-09-18 06:41] LABS: Basophils % 0.4 % (0.0-0.8); Eosinophils # 0.1 10*3/uL (0.0-0.87); Eosinophils % 2.6 % (0.00-10.9); Hematocrit 27.6 VOL% (42.0-52.0); Hemoglobin 8.9 GM/DL (14.0-18.0); Immature Granulocytes % 0.4 %; Immature Granulocytes Absolute 0.02 #; Lymphocytes # 0.6 10*3/uL (1.4-4.0); Lymphocytes % 12.1 % (21.2-54.2); Mean Corpuscular HGB Conc 32.2 GM/DL (32-36); Mean Corpuscular Volume 94.5 FL (87-102); Mean Platelet Volume 9.9 FL (9.6-12.0); Monocytes % 12.1 % (1.7-12.7); Neutrophils % 72.4 % (38.7-73.9); Platelet Count 235 T/CUMM (130-400); Red Blood Count 2.92 MC/CUMM (3.8-5.5); Red Cell Distribution Width 14.3 % (9.3-17.3)
[2020-09-18 07:17] LABS: Osmolality,Calculated 299.1 MOS/KG (273-304); Potassium 2.9 MMOL/L (3.5-5.1)
[2020-09-18] MEDS: PANTOPRAZOLE 40 MG TABLET PO SCH (10:28)
[2020-09-18] MEDS: FUROSEMIDE 80 MG TABLET PO SCH (10:28)
[2020-09-18] MEDS: CALCIUM (CARBONATE) 500 MG TABLET PO SCH (10:28)
[2020-09-18] MEDS: carvediloL 12.5 MG TABLET PO SCH ×2 (10:29→16:00)
[2020-09-18] MEDS: ACETAMINOPHEN 325 MG TABLET PO PRN ×2 (10:29→21:07)
[2020-09-18] MEDS: POTASSIUM CHLORIDE 10 MEQ TABLET PO SCH (10:29)
[2020-09-18] MEDS: SERTRALINE 50 MG TABLET PO SCH (10:29)
[2020-09-18] MEDS: IRON SUCROSE 100 MG/5 ML VIAL IV SCH (10:30)
[2020-09-18] MEDS: POTASSIUM CHLORIDE 20 MEQ/15 ML UDCUP PO SCH ×2 (15:56→21:05)
[2020-09-18] MEDS ORDERED: LACTULOSE 20 GM/30 ML UDCUP PO ONE (16:32)
[2020-09-18] MEDS: cloNIDine 0.1 MG TABLET PO SCH (21:05)
[2020-09-18] MEDS: ROSUVASTATIN 20 MG TABLET PO SCH (21:05)
[2020-09-18] MEDS: DOXAZOSIN 4 MG TABLET PO SCH (21:05)
[2020-09-18] MEDS: ASCORBIC ACID 500 MG TABLET PO SCH (21:05)
[2020-09-18] MEDS: FENOFIBRATE 145 MG TABLET PO SCH (21:06)
[2020-09-18] MEDS: FAMOTIDINE 20 MG TABLET PO SCH (21:06)
[2020-09-18] MEDS: MULTIVITAMIN (CENTRUM) TABLET PO SCH (21:06)
[2020-09-18] MEDS: GABAPENTIN 300 MG CAPSULE PO SCH (21:07)
[2020-09-18] MEDS: CHOLECALCIFEROL 1,000 UNIT TABLET PO SCH (21:07)
[2020-09-19 05:02] LABS: Basophils % 0.5 % (0.0-0.8); Eosinophils # 0.2 10*3/uL (0.0-0.87); Hematocrit 28.2 VOL% (42.0-52.0); Immature Granulocytes % 0.5 %; Immature Granulocytes Absolute 0.02 #; Lymphocytes # 0.5 10*3/uL (1.4-4.0); Lymphocytes % 13.4 % (21.2-54.2); Mean Corpuscular HGB Conc 31.9 GM/DL (32-36); Mean Corpuscular Volume 92.5 FL (87-102); Mean Platelet Volume 9.8 FL (9.6-12.0); Monocytes % 13.2 % (1.7-12.7); Neutrophils % 68.4 % (38.7-73.9); Platelet Count 230 T/CUMM (130-400); Red Blood Count 3.05 MC/CUMM (3.8-5.5); Red Cell Distribution Width 14.2 % (9.3-17.3)
[2020-09-19 05:22] LABS: Calcium 8.1 MG/DL (8.5-10.1); Osmolality,Calculated 298.1 MOS/KG (273-304); Potassium 3.1 MMOL/L (3.5-5.1)
[2020-09-19] MEDS: LEVOTHYROXINE 75 MCG TABLET PO SCH (06:10)
[2020-09-19] MEDS: SERTRALINE 50 MG TABLET PO SCH (10:54)
[2020-09-19] MEDS: carvediloL 12.5 MG TABLET PO SCH ×2 (10:54→17:08)
[2020-09-19] MEDS: CALCIUM (CARBONATE) 500 MG TABLET PO SCH (10:54)
[2020-09-19] MEDS: FUROSEMIDE 80 MG TABLET PO SCH (10:55)
[2020-09-19] MEDS: POTASSIUM CHLORIDE 20 MEQ/15 ML UDCUP PO SCH ×2 (10:55→22:12)
[2020-09-19] MEDS: IRON SUCROSE 100 MG/5 ML VIAL IV SCH (10:56)
[2020-09-19] MEDS: PANTOPRAZOLE 40 MG TABLET PO SCH (10:59)
[2020-09-19] MEDS: IRON (CARBONYL) 45 MG TABLET PO SCH (22:11)
[2020-09-19] MEDS: GABAPENTIN 300 MG CAPSULE PO SCH (22:11)
[2020-09-19] MEDS: ROSUVASTATIN 20 MG TABLET PO SCH (22:11)
[2020-09-19] MEDS: DOXAZOSIN 4 MG TABLET PO SCH (22:11)
[2020-09-19] MEDS: MULTIVITAMIN (CENTRUM) TABLET PO SCH (22:11)
[2020-09-19] MEDS: cloNIDine 0.1 MG TABLET PO SCH (22:11)
[2020-09-19] MEDS: ASCORBIC ACID 500 MG TABLET PO SCH (22:12)
[2020-09-19] MEDS: FAMOTIDINE 20 MG TABLET PO SCH (22:12)
[2020-09-19] MEDS: FENOFIBRATE 145 MG TABLET PO SCH (22:12)
[2020-09-20 05:57] LABS: Basophils % 0.7 % (0.0-0.8); Eosinophils # 0.2 10*3/uL (0.0-0.87); Eosinophils % 4.2 % (0.00-10.9); Hematocrit 29.1 VOL% (42.0-52.0); Hemoglobin 9.2 GM/DL (14.0-18.0); Immature Granulocytes % 0.5 %; Immature Granulocytes Absolute 0.02 #; Lymphocytes # 0.7 10*3/uL (1.4-4.0); Lymphocytes % 15.8 % (21.2-54.2); Mean Corpuscular HGB Conc 31.6 GM/DL (32-36); Mean Corpuscular Volume 95.1 FL (87-102); Mean Platelet Volume 10.1 FL (9.6-12.0); Monocytes % 14.1 % (1.7-12.7); Neutrophils % 64.7 % (38.7-73.9); Platelet Count 277 T/CUMM (130-400); Red Blood Count 3.06 MC/CUMM (3.8-5.5); Red Cell Distribution Width 14.1 % (9.3-17.3); White Blood Count 4.3 T/CUMM (4-12)
[2020-09-20 06:06] LABS: Calcium 8.1 MG/DL (8.5-10.1); Potassium 3.8 MMOL/L (3.5-5.1)
[2020-09-20] MEDS: LEVOTHYROXINE 75 MCG TABLET PO SCH (06:08)
[2020-09-20] MEDS: FUROSEMIDE 80 MG TABLET PO SCH (08:34)
[2020-09-20] MEDS: IRON (CARBONYL) 45 MG TABLET PO SCH ×2 (08:34→22:09)
[2020-09-20] MEDS: calcitrioL 0.25 MCG CAPSULE PO SCH (08:34)
[2020-09-20] MEDS: PANTOPRAZOLE 40 MG TABLET PO SCH (08:35)
[2020-09-20] MEDS: SERTRALINE 50 MG TABLET PO SCH (08:35)
[2020-09-20] MEDS: carvediloL 12.5 MG TABLET PO SCH ×2 (08:35→16:33)
[2020-09-20] MEDS: ACETAMINOPHEN 325 MG TABLET PO PRN (08:35)
[2020-09-20] MEDS: POTASSIUM CHLORIDE 20 MEQ/15 ML UDCUP PO SCH (08:35)
[2020-09-20] MEDS: CALCIUM (CARBONATE) 500 MG TABLET PO SCH (09:14)
[2020-09-20] MEDS: DOXAZOSIN 4 MG TABLET PO SCH (22:09)
[2020-09-20] MEDS: cloNIDine 0.1 MG TABLET PO SCH (22:09)
[2020-09-20] MEDS: MULTIVITAMIN (CENTRUM) TABLET PO SCH (22:09)
[2020-09-20] MEDS: ROSUVASTATIN 20 MG TABLET PO SCH (22:09)
[2020-09-20] MEDS: FENOFIBRATE 145 MG TABLET PO SCH (22:10)
[2020-09-20] MEDS: ASCORBIC ACID 500 MG TABLET PO SCH (22:10)
[2020-09-20] MEDS: GABAPENTIN 300 MG CAPSULE PO SCH (22:10)
[2020-09-20] MEDS: FAMOTIDINE 20 MG TABLET PO SCH (22:10)
[2020-09-21 04:22] LABS: Basophils % 0.6 % (0.0-0.8); Eosinophils # 0.2 10*3/uL (0.0-0.87); Eosinophils % 3.1 % (0.00-10.9); Hematocrit 29.2 VOL% (42.0-52.0); Hemoglobin 9.4 GM/DL (14.0-18.0); Immature Granulocytes % 0.6 %; Immature Granulocytes Absolute 0.03 #; Lymphocytes # 0.7 10*3/uL (1.4-4.0); Lymphocytes % 15.1 % (21.2-54.2); Mean Corpuscular HGB Conc 32.2 GM/DL (32-36); Mean Corpuscular Volume 94.5 FL (87-102); Mean Platelet Volume 9.7 FL (9.6-12.0); Monocytes % 11.5 % (1.7-12.7); Neutrophils % 69.1 % (38.7-73.9); Platelet Count 291 T/CUMM (130-400); Red Blood Count 3.09 MC/CUMM (3.8-5.5); Red Cell Distribution Width 14.2 % (9.3-17.3); White Blood Count 4.9 T/CUMM (4-12)
[2020-09-21 04:39] LABS: Calcium 8.1 MG/DL (8.5-10.1); Osmolality,Calculated 305.8 MOS/KG (273-304); Potassium 3.1 MMOL/L (3.5-5.1)
[2020-09-21] MEDS: LEVOTHYROXINE 75 MCG TABLET PO SCH (06:18)
[2020-09-21] MEDS ORDERED: POTASSIUM CHLORIDE 20 MEQ/15 ML UDCUP PO SCH (09:00)
[2020-09-21] MEDS: IRON (CARBONYL) 45 MG TABLET PO SCH ×2 (09:55→21:12)
[2020-09-21] MEDS: SERTRALINE 50 MG TABLET PO SCH (09:55)
[2020-09-21] MEDS: CALCIUM (CARBONATE) 500 MG TABLET PO SCH (09:55)
[2020-09-21] MEDS: PANTOPRAZOLE 40 MG TABLET PO SCH (09:55)
[2020-09-21] MEDS: carvediloL 12.5 MG TABLET PO SCH ×2 (09:55→16:35)
[2020-09-21] MEDS: FUROSEMIDE 80 MG TABLET PO SCH (09:55)
[2020-09-21] MEDS: calcitrioL 0.25 MCG CAPSULE PO SCH (09:55)
[2020-09-21] MEDS: MULTIVITAMIN (CENTRUM) TABLET PO SCH (21:11)
[2020-09-21] MEDS: ASCORBIC ACID 500 MG TABLET PO SCH (21:11)
[2020-09-21] MEDS: FAMOTIDINE 20 MG TABLET PO SCH (21:11)
[2020-09-21] MEDS: DOXAZOSIN 4 MG TABLET PO SCH (21:11)
[2020-09-21] MEDS: GABAPENTIN 300 MG CAPSULE PO SCH (21:11)
[2020-09-21] MEDS: ROSUVASTATIN 20 MG TABLET PO SCH (21:11)
[2020-09-21] MEDS: POTASSIUM CHLORIDE 20 MEQ/15 ML UDCUP PO SCH (21:11)
[2020-09-21] MEDS: cloNIDine 0.1 MG TABLET PO SCH (21:11)
[2020-09-21] MEDS: FENOFIBRATE 145 MG TABLET PO SCH (21:11)
[2020-09-22] MEDS: LEVOTHYROXINE 75 MCG TABLET PO SCH (05:26)
[2020-09-22 06:07] LABS: Basophils % 0.6 % (0.0-0.8); Eosinophils # 0.2 10*3/uL (0.0-0.87); Eosinophils % 3.4 % (0.00-10.9); Hematocrit 31.9 VOL% (42.0-52.0); Hemoglobin 10.3 GM/DL (14.0-18.0); Immature Granulocytes % 0.4 %; Immature Granulocytes Absolute 0.02 #; Lymphocytes # 0.9 10*3/uL (1.4-4.0); Lymphocytes % 17.2 % (21.2-54.2); Mean Corpuscular HGB Conc 32.3 GM/DL (32-36); Mean Corpuscular Volume 94.1 FL (87-102); Mean Platelet Volume 9.2 FL (9.6-12.0); Monocytes % 8.3 % (1.7-12.7); Neutrophils % 70.1 % (38.7-73.9); Platelet Count 309 T/CUMM (130-400); Red Blood Count 3.39 MC/CUMM (3.8-5.5); Red Cell Distribution Width 14.2 % (9.3-17.3); White Blood Count 5.3 T/CUMM (4-12)
[2020-09-22 06:36] LABS: Osmolality,Calculated 302.1 MOS/KG (273-304); Potassium 3.1 MMOL/L (3.5-5.1)
[2020-09-22] MEDS ORDERED: POTASSIUM CHLORIDE 20 MEQ TABLET PO ONE (07:06)
[2020-09-22] MEDS: PANTOPRAZOLE 40 MG TABLET PO SCH (08:30)
[2020-09-22] MEDS: SERTRALINE 50 MG TABLET PO SCH (08:30)
[2020-09-22] MEDS: POTASSIUM CHLORIDE 20 MEQ/15 ML UDCUP PO SCH (08:30)
[2020-09-22] MEDS: FUROSEMIDE 80 MG TABLET PO SCH (08:30)
[2020-09-22] MEDS: CALCIUM (CARBONATE) 500 MG TABLET PO SCH (08:30)
[2020-09-22] MEDS: carvediloL 12.5 MG TABLET PO SCH (08:30)
[2020-09-22] MEDS: IRON (CARBONYL) 45 MG TABLET PO SCH (08:30)
[2020-09-22] MEDS: calcitrioL 0.25 MCG CAPSULE PO SCH (08:30)
[2020-09-22] MEDS ORDERED: CLOPIDOGREL 75 MG TABLET PO SCH (09:00)
[2020-09-22] MEDS: ACETAMINOPHEN 325 MG TABLET PO PRN (10:48)
[2020-09-22 11:49] VITALS: BP 128/67
[2020-09-22] MEDS ORDERED: POTASSIUM CHLORIDE 20 MEQ/15 ML UDCUP PO SCH (21:00)
== END 2020-09-22 13:37 | DRG 699 ==
LOC: EDBD → EDUNIT# → N.ED 08:03 → N.EDINP 08:03 → SUATTDRO 11:23 → N.2E 12:02 → SUATTDRO 09-13 12:04
PROVIDERS: ADMIT Internal Medicine; ATTEND Internal Medicine Geriatric Medicine

== ENCOUNTER 2021-01-20 14:30 | Inpatient (IN) ==
[2021-01-20] MEDS ORDERED: ASPIRIN CHEW 81 MG TABLET PO STA (15:33)
[2021-01-20 15:40] LABS: Albumin 2.4 G/DL (3.4-5.0); Bilirubin,Total 0.5 MG/DL (0.20-1.00); Calcium 9.1 MG/DL (8.5-10.1); Osmolality,Calculated 294.3 MOS/KG (273-304); Potassium 3.4 MMOL/L (3.5-5.1); Total Protein 5.5 G/DL (6.4-8.2)
[2021-01-20 15:46] LABS: Basophils % 0.3 % (0.0-0.8); Eosinophils # 0.1 10*3/uL (0.0-0.87); Eosinophils % 0.9 % (0.00-10.9); Hematocrit 29.1 VOL% (42.0-52.0); Hemoglobin 9.2 GM/DL (14.0-18.0); Immature Granulocytes % 0.4 %; Immature Granulocytes Absolute 0.04 #; Lymphocytes # 0.6 10*3/uL (1.4-4.0); Lymphocytes % 6.5 % (21.2-54.2); Mean Corpuscular HGB Conc 31.6 GM/DL (32-36); Mean Platelet Volume 9.9 FL (9.6-12.0); Monocytes % 7.3 % (1.7-12.7); Neutrophils % 84.6 % (38.7-73.9); Platelet Count 224 T/CUMM (130-400); Red Cell Distribution Width 13.9 % (9.3-17.3); White Blood Count 9.6 T/CUMM (4-12)
[2021-01-20 16:03] LABS: PT Patient Result 11.1 SECS (10.5-12.0); Partial Thromboplastin Time 20.6 SECS (23.9-33.8)
[2021-01-20] MEDS ORDERED: ALUM/MAG/SIMETH/LIDO VISC 1:1 30 ML BOTTLE PO PRN (17:22)
[2021-01-20] MEDS ORDERED: GLUCAGON 1 MG VIAL IM PRN (17:22)
[2021-01-20] MEDS ORDERED: ZALEPLON 5 MG CAPSULE PO PRN (17:22)
[2021-01-20] MEDS ORDERED: DEXTROSE 50% 25 GM/50 ML VIAL IV PRN (17:22)
[2021-01-20] MEDS ORDERED: NITROGLYCERIN SL 0.4 MG TABLET SL PRN (17:22)
[2021-01-20] MEDS ORDERED: MORPHINE 2 MG/1 ML SYRINGE IV PRN ×2 (17:22→17:42)
[2021-01-20] MEDS ORDERED: POTASSIUM CHLORIDE 20 MEQ TABLET PO ONE (17:28)
[2021-01-20] MEDS ORDERED: LACTULOSE 20 GM/30 ML UDCUP PO PRN (17:28)
[2021-01-20] MEDS ORDERED: hydrALAZINE 20 MG/1 ML VIAL IV PRN (17:28)
[2021-01-20] MEDS ORDERED: MAGNESIUM SULF RIDER 2 GM/50 ML PREMIX IV ONE (17:28)
[2021-01-21] MEDS ORDERED: hydrALAZINE 20 MG/1 ML VIAL IV PRN (01:38)
[2021-01-21 02:56] LABS: Basophils % 0.4 % (0.0-0.8); Eosinophils # 0.1 10*3/uL (0.0-0.87); Eosinophils % 0.6 % (0.00-10.9); Hematocrit 26.6 VOL% (42.0-52.0); Hemoglobin 8.5 GM/DL (14.0-18.0); Immature Granulocytes % 0.7 %; Immature Granulocytes Absolute 0.07 #; Lymphocytes # 0.5 10*3/uL (1.4-4.0); Lymphocytes % 5.2 % (21.2-54.2); Mean Corpuscular Volume 97.4 FL (87-102); Mean Platelet Volume 10.4 FL (9.6-12.0); Monocytes % 6.1 % (1.7-12.7); Platelet Count 201 T/CUMM (130-400); Red Blood Count 2.73 MC/CUMM (3.8-5.5); Red Cell Distribution Width 13.9 % (9.3-17.3); White Blood Count 10.4 T/CUMM (4-12)
[2021-01-21 03:08] LABS: Calcium 9.3 MG/DL (8.5-10.1); Osmolality,Calculated 295.1 MOS/KG (273-304); Potassium 3.5 MMOL/L (3.5-5.1)
[2021-01-21 03:10] LABS: Risk Ratio 3.06; VLDL Cholesterol 30.4 MG/DL
[2021-01-21] MEDS: ACETAMINOPHEN 325 MG TABLET PO PRN ×3 (03:58→15:44)
[2021-01-21] MEDS: PANTOPRAZOLE 40 MG TABLET PO SCH (08:32)
[2021-01-21] MEDS: ASPIRIN EC 325 MG TABLET PO SCH (08:32)
[2021-01-21] MEDS ORDERED: MAGNESIUM SULF RIDER 2 GM/50 ML PREMIX IV ONE (12:15)
[2021-01-21] MEDS: POTASSIUM CHLORIDE 20 MEQ/15 ML UDCUP PO SCH ×2 (12:18→20:37)
[2021-01-21] MEDS ORDERED: FUROSEMIDE 80 MG TABLET PO SCH (12:30)
[2021-01-21] MEDS: CLOPIDOGREL 75 MG TABLET PO SCH (12:53)
[2021-01-21] MEDS: FUROSEMIDE 40 MG/4 ML VIAL IV SCH (12:56)
[2021-01-21] MEDS: carvediloL 6.25 MG TABLET PO SCH (16:22)
[2021-01-21] MEDS: ROSUVASTATIN 20 MG TABLET PO SCH (20:38)
[2021-01-21] MEDS: DOXAZOSIN 4 MG TABLET PO SCH (20:38)
[2021-01-21] MEDS: ASCORBIC ACID 500 MG TABLET PO SCH (20:38)
[2021-01-21] MEDS: FENOFIBRATE 145 MG TABLET PO SCH (20:39)
[2021-01-21] MEDS ORDERED: cloNIDine 0.1 MG TABLET PO SCH (21:00)
[2021-01-21] MEDS: ONDANSETRON 4 MG/2 ML VIAL IV PRN (21:53)
[2021-01-22 05:37] LABS: Basophils % 0.2 % (0.0-0.8); Eosinophils % 0.4 % (0.00-10.9); Hematocrit 22.4 VOL% (42.0-52.0); Hemoglobin 7.4 GM/DL (14.0-18.0); Immature Granulocytes % 0.7 %; Immature Granulocytes Absolute 0.07 #; Lymphocytes # 0.6 10*3/uL (1.4-4.0); Lymphocytes % 5.8 % (21.2-54.2); Mean Corpuscular Volume 97.4 FL (87-102); Mean Platelet Volume 10.4 FL (9.6-12.0); Monocytes % 5.8 % (1.7-12.7); Neutrophils % 87.1 % (38.7-73.9); Platelet Count 185 T/CUMM (130-400); Red Cell Distribution Width 14.2 % (9.3-17.3); White Blood Count 10.2 T/CUMM (4-12)
[2021-01-22 06:14] LABS: Calcium 8.1 MG/DL (8.5-10.1); Potassium 3.4 MMOL/L (3.5-5.1)
[2021-01-22] MEDS: PANTOPRAZOLE 40 MG TABLET PO SCH (09:12)
[2021-01-22] MEDS: CLOPIDOGREL 75 MG TABLET PO SCH (09:12)
[2021-01-22] MEDS: POTASSIUM CHLORIDE 20 MEQ/15 ML UDCUP PO SCH ×2 (09:12→22:22)
[2021-01-22] MEDS: ASPIRIN EC 325 MG TABLET PO SCH (09:12)
[2021-01-22] MEDS: FUROSEMIDE 40 MG/4 ML VIAL IV SCH (09:13)
[2021-01-22] MEDS: carvediloL 6.25 MG TABLET PO SCH ×2 (09:22→16:22)
[2021-01-22] MEDS: LEVOTHYROXINE 75 MCG TABLET PO SCH (09:22)
[2021-01-22] MEDS: SERTRALINE 50 MG TABLET PO SCH (09:22)
[2021-01-22] MEDS: CALCIUM (CARBONATE) 500 MG TABLET PO SCH (09:22)
[2021-01-22] MEDS: cloNIDine 0.1 MG TABLET PO SCH ×2 (09:23→21:00)
[2021-01-22] MEDS: ACETAMINOPHEN 325 MG TABLET PO PRN ×3 (09:27→16:22)
[2021-01-22] MEDS: ONDANSETRON 4 MG/2 ML VIAL IV PRN (12:11)
[2021-01-22 14:23] LABS: % Iron Saturation 4.8 % (18-50)
[2021-01-22 14:25] LABS: Folate 16.86 NG/ML (5.38-24.0)
[2021-01-22] MEDS: cefTRIAXone 1,000 MG in SODIUM CHLORIDE 0.9% 100 ML IV SCH (15:01)
[2021-01-22] MEDS: DEXTROSE 5% NACL 0.45% 1,000 ML IV SCH (15:12)
[2021-01-22] MEDS: AZITHROMYCIN INJ 500 MG in SODIUM CHLORIDE 0.9% 250 ML IV SCH (15:48)
[2021-01-22 19:22] LABS: Amorphous Crystals,Urine Occasional /HPF (Few); Bilirubin,Urine Negative (Negative); Blood, Urine Negative (Negative); Glucose,Urine (UA) Negative (Negative); Ketones,Urine Negative (Negative); Mucus,Urine Few /LPF (Occasional); Nitrite,Urine Negative (Negative); Protein,Urine >=500 MG/DL; Urine Appearance CLOUDY (Clear); Urine Color Amber (Yellow); Urine Specific Gravity 1.012 (1.001-1.035); Urine Urobilinogen < 2.0 EU/DL (0.2-1.0)
[2021-01-22] MEDS: DOXAZOSIN 4 MG TABLET PO SCH (21:00)
[2021-01-22] MEDS: ROSUVASTATIN 20 MG TABLET PO SCH (22:25)
[2021-01-22] MEDS: ASCORBIC ACID 500 MG TABLET PO SCH (22:26)
[2021-01-22] MEDS: GABAPENTIN 300 MG CAPSULE PO SCH (22:27)
[2021-01-22] MEDS: FENOFIBRATE 145 MG TABLET PO SCH (22:27)
[2021-01-23] MEDS ORDERED: SODIUM CHLORIDE 0.9% 1,000 ML IV PRN (04:43)
[2021-01-23 05:35] LABS: Basophils % 0.1 % (0.0-0.8); Eosinophils % 0.1 % (0.00-10.9); Hemoglobin 6.6 GM/DL (14.0-18.0); Immature Granulocytes Absolute 0.15 #; Lymphocytes # 0.3 10*3/uL (1.4-4.0); Lymphocytes % 3.5 % (21.2-54.2); Mean Corpuscular HGB Conc 31.4 GM/DL (32-36); Mean Corpuscular Volume 98.6 FL (87-102); Mean Platelet Volume 11.2 FL (9.6-12.0); Monocytes % 5.6 % (1.7-12.7); Neutrophils % 88.7 % (38.7-73.9); Platelet Count 146 T/CUMM (130-400); Red Blood Count 2.13 MC/CUMM (3.8-5.5); Red Cell Distribution Width 14.5 % (9.3-17.3); White Blood Count 7.7 T/CUMM (4-12)
[2021-01-23 05:49] LABS: Calcium 7.8 MG/DL (8.5-10.1); Osmolality,Calculated 301.1 MOS/KG (273-304); Potassium 3.5 MMOL/L (3.5-5.1)
[2021-01-23] MEDS: LEVOTHYROXINE 75 MCG TABLET PO SCH (06:34)
[2021-01-23 06:49] LABS: Band Neutrophils 46 % (0-10); Lymphocytes 8 % (20-55); Metamyelocytes 3 %; Segmented Neutrophils 39 % (50-85); Total Cells Counted 100
[2021-01-23 06:50] LABS: Anisocytosis 2+; Macrocytosis 1+; Platelet Estimate Adequate; Spherocytes Few
[2021-01-23] MEDS ORDERED: POLYVINYL ALCOHOL 1.4% OPH SOLN 15 ML BOTTLE BOTH EYES PRN (07:48)
[2021-01-23] MEDS: carvediloL 6.25 MG TABLET PO SCH ×2 (08:40→16:04)
[2021-01-23] MEDS: cloNIDine 0.1 MG TABLET PO SCH (08:41)
[2021-01-23] MEDS: POTASSIUM CHLORIDE 20 MEQ/15 ML UDCUP PO SCH (08:41)
[2021-01-23] MEDS: ASPIRIN EC 325 MG TABLET PO SCH (08:42)
[2021-01-23] MEDS: PANTOPRAZOLE 40 MG TABLET PO SCH (08:42)
[2021-01-23] MEDS: SERTRALINE 50 MG TABLET PO SCH (08:42)
[2021-01-23] MEDS: MULTIVITAMIN (CENTRUM) TABLET PO SCH (08:42)
[2021-01-23] MEDS: CALCIUM (CARBONATE) 500 MG TABLET PO SCH (08:42)
[2021-01-23] MEDS: DEXTROSE 5% NACL 0.45% 1,000 ML IV SCH (14:40)
[2021-01-23] MEDS: cefTRIAXone 1,000 MG in SODIUM CHLORIDE 0.9% 100 ML IV SCH (14:40)
[2021-01-23] MEDS: AZITHROMYCIN INJ 500 MG in SODIUM CHLORIDE 0.9% 250 ML IV SCH (16:15)
[2021-01-23] MEDS: ACETAMINOPHEN 325 MG TABLET PO PRN (19:02)
[2021-01-23] MEDS: FENOFIBRATE 145 MG TABLET PO SCH (22:18)
[2021-01-23] MEDS: CHOLECALCIFEROL 1,000 UNIT TABLET PO SCH (22:18)
[2021-01-23] MEDS: GABAPENTIN 300 MG CAPSULE PO SCH (22:18)
[2021-01-23] MEDS: DOXAZOSIN 4 MG TABLET PO SCH (22:18)
[2021-01-23] MEDS: ROSUVASTATIN 20 MG TABLET PO SCH (22:18)
[2021-01-23] MEDS: ASCORBIC ACID 500 MG TABLET PO SCH (22:19)
[2021-01-23] MEDS: POTASSIUM BICARB EFFERVESCENT 20 MEQ TAB.EFF PO SCH (22:21)
[2021-01-24 05:20] LABS: Basophils % 0.6 % (0.0-0.8); Eosinophils # 0.2 10*3/uL (0.0-0.87); Eosinophils % 2.8 % (0.00-10.9); Hemoglobin 8.6 GM/DL (14.0-18.0); Immature Granulocytes % 1.1 %; Immature Granulocytes Absolute 0.06 #; Lymphocytes # 0.5 10*3/uL (1.4-4.0); Lymphocytes % 8.9 % (21.2-54.2); Mean Corpuscular HGB Conc 33.1 GM/DL (32-36); Mean Corpuscular Volume 95.9 FL (87-102); Mean Platelet Volume 12.2 FL (9.6-12.0); Monocytes % 5.7 % (1.7-12.7); Neutrophils % 80.9 % (38.7-73.9); Platelet Count 102 T/CUMM (130-400); Red Blood Count 2.71 MC/CUMM (3.8-5.5); Red Cell Distribution Width 14.6 % (9.3-17.3); White Blood Count 5.3 T/CUMM (4-12)
[2021-01-24 05:24] LABS: Calcium 7.3 MG/DL (8.5-10.1); Potassium 4.3 MMOL/L (3.5-5.1)
[2021-01-24 05:44] LABS: Band Neutrophils 1 % (0-10); Eosinophils 1 % (0-10); Hypochromasia Slight; Lymphocytes 11 % (20-55); Segmented Neutrophils 81 % (50-85); Total Cells Counted 100
[2021-01-24 05:45] LABS: Microcytosis 1+; Platelet Estimate Decreased
[2021-01-24] MEDS: LEVOTHYROXINE 75 MCG TABLET PO SCH (06:30)
[2021-01-24] MEDS: ACETAMINOPHEN 325 MG TABLET PO PRN ×3 (07:30→22:06)
[2021-01-24] MEDS: CALCIUM (CARBONATE) 500 MG TABLET PO SCH (09:12)
[2021-01-24] MEDS: ASPIRIN EC 325 MG TABLET PO SCH (09:12)
[2021-01-24] MEDS: MULTIVITAMIN (CENTRUM) TABLET PO SCH (09:12)
[2021-01-24] MEDS: carvediloL 6.25 MG TABLET PO SCH ×2 (09:12→16:08)
[2021-01-24] MEDS: SERTRALINE 50 MG TABLET PO SCH (09:13)
[2021-01-24] MEDS: CLOPIDOGREL 75 MG TABLET PO SCH (09:13)
[2021-01-24] MEDS: PANTOPRAZOLE 40 MG TABLET PO SCH (09:13)
[2021-01-24] MEDS: POTASSIUM BICARB EFFERVESCENT 20 MEQ TAB.EFF PO SCH ×2 (09:14→22:05)
[2021-01-24] MEDS: DEXTROSE 5% NACL 0.45% 1,000 ML IV SCH (10:40)
[2021-01-24] MEDS: cefTRIAXone 1,000 MG in SODIUM CHLORIDE 0.9% 100 ML IV SCH (16:09)
[2021-01-24] MEDS: DOXAZOSIN 4 MG TABLET PO SCH (22:05)
[2021-01-24] MEDS: ASCORBIC ACID 500 MG TABLET PO SCH (22:05)
[2021-01-24] MEDS: ROSUVASTATIN 20 MG TABLET PO SCH (22:05)
[2021-01-24] MEDS: GABAPENTIN 300 MG CAPSULE PO SCH (22:05)
[2021-01-24] MEDS: FENOFIBRATE 145 MG TABLET PO SCH (22:05)
[2021-01-24] MEDS: CHOLECALCIFEROL 1,000 UNIT TABLET PO SCH (22:05)
[2021-01-25 05:36] LABS: Basophils % 0.2 % (0.0-0.8); Eosinophils # 0.2 10*3/uL (0.0-0.87); Eosinophils % 2.9 % (0.00-10.9); Hematocrit 24.5 VOL% (42.0-52.0); Immature Granulocytes % 0.9 %; Immature Granulocytes Absolute 0.05 #; Lymphocytes # 0.6 10*3/uL (1.4-4.0); Lymphocytes % 10.8 % (21.2-54.2); Mean Corpuscular HGB Conc 32.7 GM/DL (32-36); Mean Corpuscular Volume 96.5 FL (87-102); Mean Platelet Volume 11.1 FL (9.6-12.0); Monocytes % 8.4 % (1.7-12.7); Neutrophils % 76.8 % (38.7-73.9); Platelet Count 155 T/CUMM (130-400); Red Blood Count 2.54 MC/CUMM (3.8-5.5); Red Cell Distribution Width 14.6 % (9.3-17.3); White Blood Count 5.9 T/CUMM (4-12)
[2021-01-25 06:00] LABS: Albumin 1.6 G/DL (3.4-5.0); Calcium 6.7 MG/DL (8.5-10.1); Osmolality,Calculated 298.7 MOS/KG (273-304); Potassium 4.1 MMOL/L (3.5-5.1)
[2021-01-25] MEDS: LEVOTHYROXINE 75 MCG TABLET PO SCH (06:04)
[2021-01-25 06:12] LABS: Eosinophils 1 % (0-10); Hypochromasia 1+; Lymphocytes 10 % (20-55); Microcytosis 1+; Platelet Estimate Adequate; Segmented Neutrophils 80 % (50-85); Total Cells Counted 100
[2021-01-25] MEDS: DEXTROSE 5% NACL 0.45% 1,000 ML IV SCH (07:50)
[2021-01-25] MEDS: PANTOPRAZOLE 40 MG TABLET PO SCH (09:38)
[2021-01-25] MEDS: CALCIUM (CARBONATE) 500 MG TABLET PO SCH (09:38)
[2021-01-25] MEDS: CLOPIDOGREL 75 MG TABLET PO SCH (09:39)
[2021-01-25] MEDS: MULTIVITAMIN (CENTRUM) TABLET PO SCH (09:39)
[2021-01-25] MEDS: ACETAMINOPHEN 325 MG TABLET PO PRN ×2 (09:39→16:11)
[2021-01-25] MEDS: POTASSIUM BICARB EFFERVESCENT 20 MEQ TAB.EFF PO SCH (09:39)
[2021-01-25] MEDS: ASPIRIN EC 325 MG TABLET PO SCH (09:39)
[2021-01-25] MEDS: carvediloL 6.25 MG TABLET PO SCH ×2 (09:40→16:11)
[2021-01-25] MEDS: SERTRALINE 50 MG TABLET PO SCH (09:40)
[2021-01-25] MEDS: cefTRIAXone 1,000 MG in SODIUM CHLORIDE 0.9% 100 ML IV SCH (14:50)
[2021-01-25] MEDS: ROSUVASTATIN 20 MG TABLET PO SCH (21:02)
[2021-01-25] MEDS: DOXAZOSIN 4 MG TABLET PO SCH (21:03)
[2021-01-25] MEDS: GABAPENTIN 300 MG CAPSULE PO SCH (21:03)
[2021-01-25] MEDS: FENOFIBRATE 145 MG TABLET PO SCH (21:04)
[2021-01-25] MEDS: ASCORBIC ACID 500 MG TABLET PO SCH (21:04)
[2021-01-25] MEDS: CHOLECALCIFEROL 1,000 UNIT TABLET PO SCH (21:04)
[2021-01-25] MEDS: CALCIUM CARBONATE CHEW 500 MG TABLET PO PRN (21:47)
[2021-01-26] MEDS: DEXTROSE 5% NACL 0.45% 1,000 ML IV SCH ×3 (03:19→23:40)
[2021-01-26] MEDS: LEVOTHYROXINE 75 MCG TABLET PO SCH (06:15)
[2021-01-26] MEDS: ACETAMINOPHEN 325 MG TABLET PO PRN ×3 (08:24→23:14)
[2021-01-26] MEDS: carvediloL 6.25 MG TABLET PO SCH ×2 (08:24→16:29)
[2021-01-26] MEDS: ASPIRIN EC 325 MG TABLET PO SCH (08:24)
[2021-01-26] MEDS: CLOPIDOGREL 75 MG TABLET PO SCH (08:24)
[2021-01-26] MEDS: SERTRALINE 50 MG TABLET PO SCH (08:24)
[2021-01-26] MEDS: MULTIVITAMIN (CENTRUM) TABLET PO SCH (08:24)
[2021-01-26] MEDS: PANTOPRAZOLE 40 MG TABLET PO SCH (08:24)
[2021-01-26] MEDS: CALCIUM (CARBONATE) 500 MG TABLET PO SCH (08:25)
[2021-01-26] MEDS: POTASSIUM BICARB EFFERVESCENT 20 MEQ TAB.EFF PO SCH (08:25)
[2021-01-26 08:36] LABS: Basophils % 0.3 % (0.0-0.8); Eosinophils # 0.2 10*3/uL (0.0-0.87); Eosinophils % 2.2 % (0.00-10.9); Hematocrit 26.5 VOL% (42.0-52.0); Hemoglobin 8.6 GM/DL (14.0-18.0); Immature Granulocytes % 1.4 %; Lymphocytes # 0.6 10*3/uL (1.4-4.0); Lymphocytes % 8.1 % (21.2-54.2); Mean Corpuscular HGB Conc 32.5 GM/DL (32-36); Mean Corpuscular Volume 96.4 FL (87-102); Mean Platelet Volume 10.8 FL (9.6-12.0); Platelet Count 185 T/CUMM (130-400); Red Blood Count 2.75 MC/CUMM (3.8-5.5); Red Cell Distribution Width 14.6 % (9.3-17.3); White Blood Count 7.3 T/CUMM (4-12)
[2021-01-26 08:56] LABS: Eosinophils 7 % (0-10); Hypochromasia 1+; Lymphocytes 8 % (20-55); Microcytosis 1+; Nucleated Red Blood Cells 1 (0-5); Platelet Estimate Adequate; Segmented Neutrophils 83 % (50-85); Total Cells Counted 100
[2021-01-26 09:09] LABS: Calcium 7.4 MG/DL (8.5-10.1); Osmolality,Calculated 285.7 MOS/KG (273-304); Potassium 3.9 MMOL/L (3.5-5.1)
[2021-01-26] MEDS: cefTRIAXone 1,000 MG in SODIUM CHLORIDE 0.9% 100 ML IV SCH (14:24)
[2021-01-26] MEDS: DOXAZOSIN 4 MG TABLET PO SCH (21:21)
[2021-01-26] MEDS: ASCORBIC ACID 500 MG TABLET PO SCH (21:21)
[2021-01-26] MEDS: CHOLECALCIFEROL 1,000 UNIT TABLET PO SCH (21:22)
[2021-01-26] MEDS: FENOFIBRATE 145 MG TABLET PO SCH (21:22)
[2021-01-26] MEDS: GABAPENTIN 300 MG CAPSULE PO SCH (21:22)
[2021-01-26] MEDS: ROSUVASTATIN 20 MG TABLET PO SCH (21:22)
[2021-01-26] MEDS: CALCIUM CARBONATE CHEW 500 MG TABLET PO PRN (21:25)
[2021-01-27 05:19] LABS: Basophils % 0.6 % (0.0-0.8); Eosinophils # 0.2 10*3/uL (0.0-0.87); Eosinophils % 3.1 % (0.00-10.9); Hematocrit 40.9 VOL% (42.0-52.0); Immature Granulocytes % 1.6 %; Immature Granulocytes Absolute 0.08 #; Lymphocytes # 0.6 10*3/uL (1.4-4.0); Lymphocytes % 10.9 % (21.2-54.2); Mean Corpuscular HGB Conc 32.3 GM/DL (32-36); Mean Platelet Volume 11.7 FL (9.6-12.0); Neutrophils % 76.8 % (38.7-73.9); Platelet Count 129 T/CUMM (130-400); Red Blood Count 4.26 MC/CUMM (3.8-5.5); Red Cell Distribution Width 14.6 % (9.3-17.3); White Blood Count 5.2 T/CUMM (4-12)
[2021-01-27 05:20] LABS: Hemoglobin 13.2 GM/DL (14.0-18.0)
[2021-01-27 05:23] LABS: Hypochromasia Slight; Microcytosis Slight
[2021-01-27 05:50] LABS: Calcium 7.6 MG/DL (8.5-10.1); Potassium 4.3 MMOL/L (3.5-5.1)
[2021-01-27] MEDS: LEVOTHYROXINE 75 MCG TABLET PO SCH (06:14)
[2021-01-27] MEDS: SERTRALINE 50 MG TABLET PO SCH (09:14)
[2021-01-27] MEDS: carvediloL 6.25 MG TABLET PO SCH ×2 (09:15→17:05)
[2021-01-27] MEDS: ASPIRIN EC 325 MG TABLET PO SCH (09:15)
[2021-01-27] MEDS: CLOPIDOGREL 75 MG TABLET PO SCH (09:15)
[2021-01-27] MEDS: MULTIVITAMIN (CENTRUM) TABLET PO SCH (09:15)
[2021-01-27] MEDS: PANTOPRAZOLE 40 MG TABLET PO SCH (09:15)
[2021-01-27] MEDS: POTASSIUM BICARB EFFERVESCENT 20 MEQ TAB.EFF PO SCH (09:15)
[2021-01-27] MEDS: CALCIUM (CARBONATE) 500 MG TABLET PO SCH (09:16)
[2021-01-27] MEDS: cefTRIAXone 1,000 MG in SODIUM CHLORIDE 0.9% 100 ML IV SCH (17:04)
[2021-01-27] MEDS: FENOFIBRATE 145 MG TABLET PO SCH (21:55)
[2021-01-27] MEDS: ASCORBIC ACID 500 MG TABLET PO SCH (21:55)
[2021-01-27] MEDS: CHOLECALCIFEROL 1,000 UNIT TABLET PO SCH (21:55)
[2021-01-27] MEDS: CALCIUM CARBONATE CHEW 500 MG TABLET PO PRN (21:56)
[2021-01-27] MEDS: DOXAZOSIN 4 MG TABLET PO SCH (21:56)
[2021-01-27] MEDS: GABAPENTIN 300 MG CAPSULE PO SCH (21:56)
[2021-01-27] MEDS: ROSUVASTATIN 20 MG TABLET PO SCH (21:56)
[2021-01-28 05:45] LABS: Basophils % 0.2 % (0.0-0.8); Eosinophils # 0.2 10*3/uL (0.0-0.87); Eosinophils % 3.1 % (0.00-10.9); Hematocrit 29.7 VOL% (42.0-52.0); Immature Granulocytes % 2.5 %; Immature Granulocytes Absolute 0.16 #; Lymphocytes # 0.7 10*3/uL (1.4-4.0); Lymphocytes % 11.3 % (21.2-54.2); Mean Corpuscular HGB Conc 31.3 GM/DL (32-36); Mean Corpuscular Volume 98.7 FL (87-102); Neutrophils % 74.9 % (38.7-73.9); Red Cell Distribution Width 14.6 % (9.3-17.3); White Blood Count 6.4 T/CUMM (4-12)
[2021-01-28 05:50] LABS: Calcium 8.1 MG/DL (8.5-10.1); Potassium 4.4 MMOL/L (3.5-5.1)
[2021-01-28] MEDS: LEVOTHYROXINE 75 MCG TABLET PO SCH (06:05)
[2021-01-28 06:59] LABS: Hemoglobin 9.3 GM/DL (14.0-18.0); Platelet Count 235 T/CUMM (130-400); Red Blood Count 3.01 MC/CUMM (3.8-5.5)
[2021-01-28 08:14] LABS: Band Neutrophils 1 % (0-10); Hypochromasia 1+; Lymphocytes 14 % (20-55); Metamyelocytes 1 %; Segmented Neutrophils 72 % (50-85); Total Cells Counted 100
[2021-01-28 08:15] LABS: Microcytosis 1+; Ovalocytes Slight; Platelet Estimate Normal
[2021-01-28] MEDS: MULTIVITAMIN (CENTRUM) TABLET PO SCH (09:09)
[2021-01-28] MEDS: CLOPIDOGREL 75 MG TABLET PO SCH (09:10)
[2021-01-28] MEDS: CALCIUM (CARBONATE) 500 MG TABLET PO SCH (09:10)
[2021-01-28] MEDS: SERTRALINE 50 MG TABLET PO SCH (09:10)
[2021-01-28] MEDS: carvediloL 6.25 MG TABLET PO SCH ×2 (09:10→16:41)
[2021-01-28] MEDS: POTASSIUM BICARB EFFERVESCENT 20 MEQ TAB.EFF PO SCH (09:10)
[2021-01-28] MEDS: ASPIRIN EC 325 MG TABLET PO SCH (09:10)
[2021-01-28] MEDS: PANTOPRAZOLE 40 MG TABLET PO SCH (09:10)
[2021-01-28] MEDS: cefTRIAXone 1,000 MG in SODIUM CHLORIDE 0.9% 100 ML IV SCH (14:42)
[2021-01-28] MEDS: CALCIUM CARBONATE CHEW 500 MG TABLET PO PRN (16:41)
[2021-01-28] MEDS: ACETAMINOPHEN 325 MG TABLET PO PRN (16:41)
[2021-01-28] MEDS: GABAPENTIN 300 MG CAPSULE PO SCH (20:24)
[2021-01-28] MEDS: DOXAZOSIN 4 MG TABLET PO SCH (20:24)
[2021-01-28] MEDS: ROSUVASTATIN 20 MG TABLET PO SCH (20:24)
[2021-01-28] MEDS: ASCORBIC ACID 500 MG TABLET PO SCH (20:25)
[2021-01-28] MEDS: CHOLECALCIFEROL 1,000 UNIT TABLET PO SCH (20:25)
[2021-01-28] MEDS: FENOFIBRATE 145 MG TABLET PO SCH (20:25)
[2021-01-29] MEDS: LEVOTHYROXINE 75 MCG TABLET PO SCH (06:12)
[2021-01-29 06:26] LABS: Basophils % 0.3 % (0.0-0.8); Eosinophils # 0.3 10*3/uL (0.0-0.87); Eosinophils % 5.3 % (0.00-10.9); Hematocrit 26.9 VOL% (42.0-52.0); Hemoglobin 8.7 GM/DL (14.0-18.0); Immature Granulocytes % 2.6 %; Immature Granulocytes Absolute 0.15 #; Lymphocytes % 16.5 % (21.2-54.2); Mean Corpuscular HGB Conc 32.3 GM/DL (32-36); Mean Corpuscular Volume 95.4 FL (87-102); Mean Platelet Volume 10.2 FL (9.6-12.0); Neutrophils % 66.3 % (38.7-73.9); Platelet Count 254 T/CUMM (130-400); Red Blood Count 2.82 MC/CUMM (3.8-5.5); Red Cell Distribution Width 14.5 % (9.3-17.3); White Blood Count 5.9 T/CUMM (4-12)
[2021-01-29 06:57] LABS: Calcium 8.1 MG/DL (8.5-10.1); Osmolality,Calculated 305.4 MOS/KG (273-304); Potassium 4.2 MMOL/L (3.5-5.1)
[2021-01-29] MEDS: SERTRALINE 50 MG TABLET PO SCH (09:49)
[2021-01-29] MEDS: PANTOPRAZOLE 40 MG TABLET PO SCH (09:49)
[2021-01-29] MEDS: CALCIUM (CARBONATE) 500 MG TABLET PO SCH (09:49)
[2021-01-29] MEDS: CLOPIDOGREL 75 MG TABLET PO SCH (09:50)
[2021-01-29] MEDS: ASPIRIN EC 325 MG TABLET PO SCH (09:50)
[2021-01-29] MEDS: POTASSIUM BICARB EFFERVESCENT 20 MEQ TAB.EFF PO SCH (09:50)
[2021-01-29] MEDS: carvediloL 6.25 MG TABLET PO SCH ×2 (09:50→18:30)
[2021-01-29] MEDS: MULTIVITAMIN (CENTRUM) TABLET PO SCH (09:50)
[2021-01-29] MEDS: CALCIUM CARBONATE CHEW 500 MG TABLET PO PRN ×2 (11:30→22:38)
[2021-01-29] MEDS: ACETAMINOPHEN 325 MG TABLET PO PRN (11:31)
[2021-01-29] MEDS: cefTRIAXone 1,000 MG in SODIUM CHLORIDE 0.9% 100 ML IV SCH (15:11)
[2021-01-29] MEDS: FENOFIBRATE 145 MG TABLET PO SCH (22:38)
[2021-01-29] MEDS: GABAPENTIN 300 MG CAPSULE PO SCH (22:38)
[2021-01-29] MEDS: ASCORBIC ACID 500 MG TABLET PO SCH (22:38)
[2021-01-29] MEDS: ROSUVASTATIN 20 MG TABLET PO SCH (22:38)
[2021-01-29] MEDS: DOXAZOSIN 4 MG TABLET PO SCH (22:41)
[2021-01-29] MEDS: CHOLECALCIFEROL 1,000 UNIT TABLET PO SCH (22:41)
[2021-01-30 06:19] LABS: Basophils % 0.5 % (0.0-0.8); Eosinophils # 0.2 10*3/uL (0.0-0.87); Eosinophils % 4.2 % (0.00-10.9); Hematocrit 26.2 VOL% (42.0-52.0); Hemoglobin 8.3 GM/DL (14.0-18.0); Immature Granulocytes % 1.7 %; Lymphocytes % 17.6 % (21.2-54.2); Mean Corpuscular HGB Conc 31.7 GM/DL (32-36); Mean Corpuscular Volume 96.7 FL (87-102); Mean Platelet Volume 10.2 FL (9.6-12.0); Monocytes % 8.7 % (1.7-12.7); Neutrophils % 67.3 % (38.7-73.9); Platelet Count 252 T/CUMM (130-400); Red Blood Count 2.71 MC/CUMM (3.8-5.5); Red Cell Distribution Width 14.5 % (9.3-17.3); White Blood Count 5.7 T/CUMM (4-12)
[2021-01-30] MEDS: LEVOTHYROXINE 75 MCG TABLET PO SCH (06:30)
[2021-01-30 06:47] LABS: Calcium 8.5 MG/DL (8.5-10.1); Osmolality,Calculated 302.4 MOS/KG (273-304); Potassium 4.5 MMOL/L (3.5-5.1)
[2021-01-30 08:19] VITALS: BP 182/70
[2021-01-30] MEDS: ASPIRIN EC 325 MG TABLET PO SCH (08:24)
[2021-01-30] MEDS: POTASSIUM BICARB EFFERVESCENT 20 MEQ TAB.EFF PO SCH (08:24)
[2021-01-30] MEDS: SERTRALINE 50 MG TABLET PO SCH (08:25)
[2021-01-30] MEDS: CALCIUM (CARBONATE) 500 MG TABLET PO SCH (08:26)
[2021-01-30] MEDS: MULTIVITAMIN (CENTRUM) TABLET PO SCH (08:26)
[2021-01-30] MEDS: CLOPIDOGREL 75 MG TABLET PO SCH (08:26)
[2021-01-30] MEDS: ACETAMINOPHEN 325 MG TABLET PO PRN ×2 (08:26→14:08)
[2021-01-30] MEDS: PANTOPRAZOLE 40 MG TABLET PO SCH (08:26)
[2021-01-30] MEDS ORDERED: ERTAPENEM 1,000 MG in SODIUM CHLORIDE 0.9% 100 ML IV SCH (08:30)
[2021-01-30] MEDS: carvediloL 6.25 MG TABLET PO SCH (08:41)
== END 2021-01-30 15:50 | disposition home health service (06) | DRG 871 ==
LOC: MERGE 14:30 → N.ED 14:30 → N.EDINP 14:30 → N.TELEN 19:16 → SUATTDRO 01-22 15:23
PROVIDERS: ADMIT Internal Medicine; ATTEND Internal Medicine

== ENCOUNTER 2021-02-02 19:46 | Inpatient (IN) ==
[2021-02-02 21:56] LABS: Basophils % 0.2 % (0.0-0.8); Eosinophils # 0.2 10*3/uL (0.0-0.87); Eosinophils % 1.3 % (0.00-10.9); Hematocrit 23.6 VOL% (42.0-52.0); Hemoglobin 7.2 GM/DL (14.0-18.0); Immature Granulocytes % 0.7 %; Immature Granulocytes Absolute 0.09 #; Lymphocytes # 0.8 10*3/uL (1.4-4.0); Lymphocytes % 6.3 % (21.2-54.2); Mean Corpuscular HGB Conc 30.5 GM/DL (32-36); Mean Corpuscular Volume 99.6 FL (87-102); Monocytes % 3.2 % (1.7-12.7); Neutrophils % 88.3 % (38.7-73.9); Platelet Count 307 T/CUMM (130-400); Red Blood Count 2.37 MC/CUMM (3.8-5.5); Red Cell Distribution Width 14.6 % (9.3-17.3)
[2021-02-02 22:29] LABS: Alanine Aminotransferase 21 U/L (16-61); Albumin 2.1 G/DL (3.4-5.0); Alkaline Phosphatase 135 U/L (45-117); Aspartate Amino Transferase 29 U/L (0-37); Bilirubin,Total < 0.39 MG/DL (0.20-1.00); Blood Urea Nitrogen 86 MG/DL (7-18); Carbon Dioxide 25 MMOL/L (21-32); Estimated Glom Filtration Rate 8 ML/MIN; Glucose 147 MG/DL (74-106); Osmolality,Calculated 309.3 MOS/KG (273-304); Potassium 4.7 MMOL/L (3.5-5.1); Sodium 141 MMOL/L (136-145); Total Protein 4.9 G/DL (6.4-8.2)
[2021-02-02] MEDS ORDERED: hydrALAZINE 20 MG/1 ML VIAL IV STA (23:02)
[2021-02-03] MEDS ORDERED: SODIUM CHLORIDE 0.9% 1,000 ML IV PRN (03:41)
[2021-02-03] MEDS ORDERED: hydrALAZINE 20 MG/1 ML VIAL IV ONE (03:42)
[2021-02-03] MEDS ORDERED: ONDANSETRON 4 MG/2 ML VIAL IV PRN (05:21)
[2021-02-03] MEDS ORDERED: ALBUTEROL/IPRATROPIUM 3 ML NEB RESP TX PRN (05:21)
[2021-02-03] MEDS ORDERED: GLUCAGON 1 MG VIAL IM PRN (05:21)
[2021-02-03] MEDS ORDERED: DEXTROSE 50% 25 GM/50 ML VIAL IV PRN (05:21)
[2021-02-03] MEDS ORDERED: DOCUSATE SODIUM 100 MG CAPSULE PO PRN (05:21)
[2021-02-03] MEDS: ERTAPENEM 1,000 MG in SODIUM CHLORIDE 0.9% 100 ML IV SCH (08:48)
[2021-02-03] MEDS ORDERED: NITROGLYCERIN SL 0.4 MG TABLET SL PRN (10:14)
[2021-02-03] MEDS ORDERED: POLYVINYL ALCOHOL 1.4% OPH SOLN 15 ML BOTTLE BOTH EYES PRN (10:14)
[2021-02-03] MEDS ORDERED: LACTULOSE 20 GM/30 ML UDCUP PO PRN (10:14)
[2021-02-03] MEDS ORDERED: CALCIUM CARBONATE CHEW 500 MG TABLET PO PRN (10:14)
[2021-02-03 10:39] LABS: ABG Base Excess -0.2 MMOL/L (-2.5-2.5); ABG HCO3 24.3 MMOL/L (20-26); ABG Oxygen Saturation 98.9 % (95-100); ABG PCO2 37.5 MM HG (35-48); ABG PH 7.417 (7.35-7.45); ABG TCO2 22.6 MMOL/L (23-27)
[2021-02-03] MEDS ORDERED: FUROSEMIDE 20 MG/2 ML VIAL IV ONE (10:45)
[2021-02-03] MEDS: DESITIN 4OZ/NYSTATIN 15 GRAM MIXTURE PASTE TOP SCH ×2 (11:48→21:36)
[2021-02-03] MEDS: hydrALAZINE 20 MG/1 ML VIAL IV PRN ×2 (12:20→18:15)
[2021-02-03] MEDS: carvediloL 6.25 MG TABLET PO SCH (17:12)
[2021-02-03 17:15] LABS: Hematocrit 27.1 VOL% (42.0-52.0)
[2021-02-03 17:18] LABS: Hemoglobin 8.5 GM/DL (14.0-18.0)
[2021-02-03] MEDS: cloNIDine 0.1 MG TABLET PO SCH (21:35)
[2021-02-03] MEDS: CHOLECALCIFEROL 1,000 UNIT TABLET PO SCH (21:35)
[2021-02-03] MEDS: ROSUVASTATIN 20 MG TABLET PO SCH (21:35)
[2021-02-03] MEDS: FAMOTIDINE 20 MG TABLET PO SCH (21:35)
[2021-02-03] MEDS: DOXAZOSIN 4 MG TABLET PO SCH (21:35)
[2021-02-03] MEDS: FENOFIBRATE 145 MG TABLET PO SCH (21:35)
[2021-02-03] MEDS: ASCORBIC ACID 500 MG TABLET PO SCH (21:36)
[2021-02-03] MEDS: PANTOPRAZOLE 40 MG TABLET PO SCH (21:36)
[2021-02-04] MEDS: LEVOTHYROXINE 75 MCG TABLET PO SCH (06:25)
[2021-02-04 07:03] LABS: Basophils # 0.1 10*3/uL (0.0-0.2); Basophils % 0.5 % (0.0-0.8); Eosinophils # 0.1 10*3/uL (0.0-0.87); Eosinophils % 1.3 % (0.00-10.9); Hematocrit 25.8 VOL% (42.0-52.0); Hemoglobin 8.2 GM/DL (14.0-18.0); Immature Granulocytes % 0.5 %; Immature Granulocytes Absolute 0.05 #; Lymphocytes # 0.6 10*3/uL (1.4-4.0); Lymphocytes % 5.8 % (21.2-54.2); Mean Corpuscular HGB Conc 31.8 GM/DL (32-36); Mean Corpuscular Volume 96.6 FL (87-102); Mean Platelet Volume 10.1 FL (9.6-12.0); Monocytes % 3.7 % (1.7-12.7); Neutrophils % 88.2 % (38.7-73.9); Platelet Count 286 T/CUMM (130-400); Red Blood Count 2.67 MC/CUMM (3.8-5.5); Red Cell Distribution Width 14.6 % (9.3-17.3); White Blood Count 10.4 T/CUMM (4-12)
[2021-02-04 07:33] LABS: Calcium 8.4 MG/DL (8.5-10.1); Osmolality,Calculated 306.3 MOS/KG (273-304); Potassium 4.3 MMOL/L (3.5-5.1)
[2021-02-04] MEDS: ERTAPENEM 1,000 MG in SODIUM CHLORIDE 0.9% 100 ML IV SCH (08:58)
[2021-02-04] MEDS: CALCIUM (CARBONATE) 500 MG TABLET PO SCH (08:59)
[2021-02-04] MEDS: PANTOPRAZOLE 40 MG TABLET PO SCH ×2 (08:59→22:29)
[2021-02-04] MEDS: carvediloL 6.25 MG TABLET PO SCH ×2 (08:59→17:01)
[2021-02-04] MEDS: ASPIRIN EC 325 MG TABLET PO SCH (08:59)
[2021-02-04] MEDS: MULTIVITAMIN (CENTRUM) TABLET PO SCH (08:59)
[2021-02-04] MEDS: CLOPIDOGREL 75 MG TABLET PO SCH (08:59)
[2021-02-04] MEDS: SERTRALINE 50 MG TABLET PO SCH (08:59)
[2021-02-04] MEDS: DESITIN 4OZ/NYSTATIN 15 GRAM MIXTURE PASTE TOP SCH ×2 (09:00→22:30)
[2021-02-04] MEDS: ACETAMINOPHEN 325 MG TABLET PO PRN ×2 (13:12→19:29)
[2021-02-04] MEDS: CHOLECALCIFEROL 1,000 UNIT TABLET PO SCH (22:04)
[2021-02-04] MEDS: FENOFIBRATE 145 MG TABLET PO SCH (22:04)
[2021-02-04] MEDS: cloNIDine 0.1 MG TABLET PO SCH (22:04)
[2021-02-04] MEDS: ROSUVASTATIN 20 MG TABLET PO SCH (22:04)
[2021-02-04] MEDS: DOXAZOSIN 4 MG TABLET PO SCH (22:04)
[2021-02-04] MEDS: ASCORBIC ACID 500 MG TABLET PO SCH (22:05)
[2021-02-04] MEDS: FAMOTIDINE 20 MG TABLET PO SCH (22:05)
[2021-02-05 06:24] LABS: Calcium 8.4 MG/DL (8.5-10.1); Osmolality,Calculated 309.8 MOS/KG (273-304); Potassium 4.2 MMOL/L (3.5-5.1)
[2021-02-05 06:31] LABS: Basophils % 0.3 % (0.0-0.8); Eosinophils # 0.1 10*3/uL (0.0-0.87); Eosinophils % 0.7 % (0.00-10.9); Hematocrit 25.4 VOL% (42.0-52.0); Immature Granulocytes % 0.6 %; Immature Granulocytes Absolute 0.09 #; Lymphocytes # 0.6 10*3/uL (1.4-4.0); Lymphocytes % 3.9 % (21.2-54.2); Mean Corpuscular HGB Conc 31.5 GM/DL (32-36); Mean Corpuscular Volume 99.2 FL (87-102); Mean Platelet Volume 10.2 FL (9.6-12.0); Monocytes % 2.8 % (1.7-12.7); Neutrophils % 91.7 % (38.7-73.9); Platelet Count 324 T/CUMM (130-400); Red Blood Count 2.56 MC/CUMM (3.8-5.5); Red Cell Distribution Width 14.5 % (9.3-17.3); White Blood Count 14.3 T/CUMM (4-12)
[2021-02-05] MEDS: ACETAMINOPHEN 325 MG TABLET PO PRN (06:33)
[2021-02-05] MEDS: LEVOTHYROXINE 75 MCG TABLET PO SCH (06:34)
[2021-02-05] MEDS: ERTAPENEM 1,000 MG in SODIUM CHLORIDE 0.9% 100 ML IV SCH (09:35)
[2021-02-05] MEDS: carvediloL 6.25 MG TABLET PO SCH (10:10)
[2021-02-05] MEDS: ASPIRIN EC 325 MG TABLET PO SCH (10:10)
[2021-02-05] MEDS: CALCIUM (CARBONATE) 500 MG TABLET PO SCH (10:10)
[2021-02-05] MEDS: MULTIVITAMIN (CENTRUM) TABLET PO SCH (10:11)
[2021-02-05] MEDS: SERTRALINE 50 MG TABLET PO SCH (10:11)
[2021-02-05] MEDS: CLOPIDOGREL 75 MG TABLET PO SCH (10:11)
[2021-02-05] MEDS: PANTOPRAZOLE 40 MG TABLET PO SCH (11:27)
[2021-02-05] MEDS: DESITIN 4OZ/NYSTATIN 15 GRAM MIXTURE PASTE TOP SCH ×2 (11:28→20:54)
[2021-02-05 11:30] LABS: Lymphocytes 1 % (20-55); Platelet Estimate Normal; Segmented Neutrophils 99 % (50-85); Total Cells Counted 100
[2021-02-05] MEDS: hydrALAZINE 20 MG/1 ML VIAL IV PRN ×2 (12:10→20:53)
[2021-02-05] MEDS ORDERED: VANCOMYCIN INJ 1,250 MG in SODIUM CHLORIDE 0.9% 250 ML IV PRN (12:40)
[2021-02-05] MEDS ORDERED: VANCOMYCIN INJ 1,250 MG in SODIUM CHLORIDE 0.9% 250 ML IV ONE (14:00)
[2021-02-05] MEDS ORDERED: hydrALAZINE 20 MG/1 ML VIAL IV ONE (14:03)
[2021-02-05] MEDS ORDERED: LORazepam 2 MG/1 ML VIAL IV PRN (15:39)
[2021-02-05] MEDS ORDERED: cloNIDine 0.1 MG/24 HR PATCH TRANSDERM SCH (16:00)
[2021-02-05] MEDS: ACETAMINOPHEN 650 MG SUPP RECTAL PRN (20:53)
[2021-02-05] MEDS: PANTOPRAZOLE 40 MG VIAL IV SCH (20:53)
[2021-02-05] MEDS ORDERED: FAMOTIDINE 20 MG/2 ML VIAL IV SCH (21:00)
[2021-02-06 06:14] LABS: Basophils # 0.1 10*3/uL (0.0-0.2); Basophils % 0.6 % (0.0-0.8); Eosinophils % 0.3 % (0.00-10.9); Hematocrit 26.9 VOL% (42.0-52.0); Hemoglobin 8.4 GM/DL (14.0-18.0); Immature Granulocytes % 0.6 %; Immature Granulocytes Absolute 0.07 #; Lymphocytes # 0.6 10*3/uL (1.4-4.0); Lymphocytes % 5.3 % (21.2-54.2); Mean Corpuscular HGB Conc 31.2 GM/DL (32-36); Mean Corpuscular Volume 98.2 FL (87-102); Monocytes % 5.6 % (1.7-12.7); Neutrophils % 87.6 % (38.7-73.9); Platelet Count 346 T/CUMM (130-400); Red Blood Count 2.74 MC/CUMM (3.8-5.5); Red Cell Distribution Width 14.6 % (9.3-17.3); White Blood Count 11.6 T/CUMM (4-12)
[2021-02-06 06:30] LABS: Calcium 8.6 MG/DL (8.5-10.1); Osmolality,Calculated 322.4 MOS/KG (273-304); Potassium 4.1 MMOL/L (3.5-5.1)
[2021-02-06] MEDS ORDERED: HYDROmorphone 2 MG/1 ML VIAL IV PRN (08:41)
[2021-02-06] MEDS: ERTAPENEM 1,000 MG in SODIUM CHLORIDE 0.9% 100 ML IV SCH (09:41)
[2021-02-06] MEDS: DESITIN 4OZ/NYSTATIN 15 GRAM MIXTURE PASTE TOP SCH (09:41)
[2021-02-06] MEDS: PANTOPRAZOLE 40 MG VIAL IV SCH (09:41)
[2021-02-06] MEDS: hydrALAZINE 20 MG/1 ML VIAL IV PRN (10:56)
[2021-02-06 11:20] VITALS: BP 222/86
[2021-02-06] MEDS: ACETAMINOPHEN 650 MG SUPP RECTAL PRN (13:15)
== END 2021-02-06 15:38 | disposition expired | DRG 682 ==
LOC: EDBD → EDUNIT# → N.ED 19:46 → N.EDINP 19:46 → SUATTDRO 02-03 00:49 → N.3E 02-03 02:01 → SUATTDRO 02-04 22:12
PROVIDERS: ADMIT Internal Medicine; ATTEND Internal Medicine